=== PATIENT | female | born 1955 | race Caucasian/White ===

== ENCOUNTER 2021-01-09 19:47 | Inpatient (IN) | payer MEDICARE, MEDICAID, SELFPAY ==
[2021-01-09 20:21] VITALS: BP 187/85; PULSE 84; RESP 16; TEMP 36.8; O2SAT 96; BMI 45.8
[2021-01-09 21:47] VITALS: BP 189/90; PULSE 81; RESP 20; TEMP 36.7; O2SAT 97
--- NOTE | 2021-01-09 21:49 | PC.NURSE ---
patient a&ox3, calm/compliant, labs drawn, pt changed over to hospital attire, sitter at bedside, pt requesting something to eat, will continue to monitor.
[2021-01-09 21:50] LABS: MANUAL DIFF FLAG NO
[2021-01-09 21:51] LABS: Basophils Absolute Auto 0.1 X10*3/uL (0.0-0.2); Basophils Percent Auto 0.8 % (0-2); Eosinophils Absolute Auto 0.2 X10*3/uL (0.0-0.4); Eosinophils Percent Auto 2.6 % (0-4); Hematocrit 44.1 % (37-47); Hemoglobin 14.3 g/dl (12.0-16.0); Imm Gran Abs Auto 0.02 X10*3/uL (0.00-0.03); Imm Gran Pct Auto 0.2 % (0.0-0.4); Lymphocytes Absolute Auto 3.5 X10*3/uL (1.2-4.9); Mean Corpuscular HGB Conc 32.4 g/dl (31.0-35.0); Mean Corpuscular Hemoglobin 27.1 pg (27.0-33.0); Mean Corpuscular Volume 83.7 fL (80-98); Mean Platelet Volume 10.3 fL (9.4-12.3); Monocytes Absolute Auto 0.5 X10*3/uL (0.1-1.2); Monocytes Percent Auto 5.1 % (2-11); Neutrophils Absolute Auto 4.5 X10*3/uL (2.0-8.3); Neutrophils Percent Auto 51.3 % (45-73); Platelet Count 283 X10*3/uL (160-400); Red Blood Count 5.27 X10*6/uL (4.20-5.50); White Blood Count 8.8 X10*3/uL (4.8-10.8)
[2021-01-09 22:13] LABS: Ethanol < 10 mg/dL
[2021-01-09 22:15] LABS: Alanine Aminotransferase 26 U/L (0-31); Albumin Level 4.3 g/dL (3.5-5.0); Alkaline Phosphatase 100 U/L (39-117); Anion Gap 15 (12-20); Aspartate Amino Transferase 29 U/L (5-31); Bilirubin Direct 0.2 mg/dL (0.0-0.5); Bilirubin Total 0.6 mg/dL (0.0-1.0); Blood Urea Nitrogen 17 mg/dL (9-16); Calcium 9.5 mg/dL (8.4-10.2); Carbon Dioxide 27 mmol/L (22-29); Chloride 106 mmol/L (96-108); Creatinine Clr Calc Pharmacy 78.3; Estimated Glomerular Filt Rate > 60; Glucose Random 108 mg/dL (60-115); Potassium 3.9 mmol/L (3.3-5.1); Sodium 144 mmol/L (135-145); Total Protein 6.9 g/dL (6.5-8.0)
[2021-01-09 22:17] LABS: Prothrombin Time 12.3 SEC (10.8-13.0)
[2021-01-09 22:26] LABS: Amphetamine Screen Urine Not Detected (Not Detect); Barbiturates, Urine Not Detected (Not Detect); Benzodiazepines Screen Urine Not Detected (Not Detect); Cannabinoid Screen Urine Not Detected (Not Detect); Cocaine Screen Urine Not Detected (Not Detect); Opiate Screen Urine Not Detected (Not Detect); Phencyclidine Screen Urine Not Detected (Not Detect)
--- NOTE | 2021-01-09 23:57 | ED_ITS ---
HPI - Psych General Chief Complaint: Psychiatric Symptoms Stated Complaint: crisis Time Seen by Provider: 01/09/21 21:04 Source: patient Mode of arrival: ambulatory Limitations: no limitations History of Present Illness HPI Narrative: Patient brought to ED for suicidal ideation. Patient was sent to the ED by her psychiatrist because she made suicidal statements during virtual phone call. Patient states last suicide attempt was last week. Patient states she was about to swallow pills last week but then she stopped herself. Patient states having constant thoughts of suicidal ideation. Patient to be evaluated. Related Data Allergies Allergy/AdvReac Type Severity Reaction Status Date / Time aripiprazole [From Abilify] Allergy Depression Verified 01/09/21 20:20 aspirin Allergy Swelling Verified 01/09/21 20:20 codeine Allergy Anxiety Verified 01/09/21 20:20 duloxetine Allergy Anxiety Verified 01/09/21 20:20 risperidone Allergy Blister Verified 01/09/21 20:20 Review of Systems Review of Systems: Yes all other systems are reviewed and are negative Constitutional: Constitutional: Reports as per HPI and Reports no additional c onstitutional complaints Eyes: Eyes: Reports as per HPI and Reports no additional eye complaints ENT: Reports system reviewed and no additional complaints, except as documented and Reports as per HPI Cardiovascular: Cardiovascular: Reports as per HPI and Reports no additional cardiovascular complaints Respiratory: Respiratory: Reports as per HPI and Reports no additional respiratory complaints Gastrointestinal: Gastrointestinal: Reports as per HPI and Reports no additional gastrointestinal complaints Genitourinary: Genitourinary: Reports no additional female genitourinary complaints and Reports as per HPI Musculoskeletal: Musculoskeletal: Reports no additional musculoskeletal complaints and Reports as per HPI Neurologic: Reports system reviewed and no additional complaints, except as documented and Reports as per HPI Psychiatric: Psychiatric: Reports no additional psychiatric complaints, Reports as per HPI and Reports suicidal ideation REPLACED BY [facility] Social History Social History Alcohol intake: never Smoking Status: Never smoker Use of substances other than those prescribed or required for medical reasons: No Advance Directives: No Advance Directives Information Provided: Yes Physical Exam Vital Signs: Vital Signs: Last Vital Signs Temp 98.1 F 01/09/21 21:47 Pulse 81 01/09/21 21:47 Resp 20 01/09/21 21:47 BP 189/90 H 01/09/21 21:47 Pulse Ox 97 01/09/21 21:47 Body Mass Index 45.8 Const: General: cooperative, healthy appearing, comfortable, no acute distress, well developed, alert, awake and Physically active Or ientation/consciousness: patient oriented x3 HENMT: Head: Yes normal to inspection and Yes No palpable skull fracture present Eyes: General: appearance normal, both eyes and all related structures Neck: Neck: Yes normal visual inspection, Yes full ROM, Yes no lymphadenopathy, Yes no meningeal signs, Yes trachea midline, Yes supple and No tender Chest: Chest palpation & inspection: normal inspection of the chest and normal palpation of entire chest wall Resp: Effort & Inspection: normal respiratory effort and able to speak in complete sentences Auscultation: clear to auscultation bilaterally Cardio: Jugular venous distension: no JVD Heart sounds: S1 normal heart sound present and S2 normal heart sound present : General: No CVA tenderness and Yes no CVA tenderness Back/Spine/Pelvis: Back: no CVA tenderness, No CVA tenderness and No back tenderness Skin: General skin exam: no rashes or lesions noted and elasticity normal Neuro: General: patient oriented x3, no meningeal signs and CN's II-XI intact bilaterally Cranial nerves: Yes CN's II-XII intact bilaterally Extrem: General: Yes normal to inspection and Yes full ROM Psych: Appearance: grossly normal, well kempt and not disheveled Thought content: Suicidality present Course Course Course Narrative: Patient will have basic labs. Patient then will be evaluated N Reevaluation(s) Reevaluation #1: Patient awaiting N evaluation MDM - Psych MDM Narrative Medical decision making narrative: Depression Lab Data Result diagrams: 01/09/21 21:42 01/09/21 21:42 Labs: Lab Results 01/09/21 01/09/21 01/09/21 Range/Units 21:42 21:42 21:42 WBC 8.8 (4.8-10.8) X10*3/uL RBC 5.27 (4.20-5.50) X10*6/uL Hgb 14.3 (12.0-16.0) g/dl Hct 44.1 (37-47) % MCV 83.7 (80-98) fL MCH 27.1 (27.0-33.0) pg MCHC 32.4 (31.0-35.0) g/dl RDW 13.0 (11.0-16.0) % Plt Count 283 (160-400) X10*3/uL MPV 10.3 (9.4-12.3) fL Immature Gran % (Auto) 0.2 (0.0-0.4) % Neut % (Auto) 51.3 (45-73) % Lymph % (Auto) 40.0 (20-40) % [place] % (Auto) 5.1 (2-11) % Eos % (Auto) 2.6 (0-4) % Baso % (Auto) 0.8 (0-2) % Lymph # (Auto) 3.5 (1.2-4.9) X10*3/uL [place] # (Auto) 0.5 (0.1-1.2) X10*3/uL Eos # (Auto) 0.2 (0.0-0.4) X10*3/uL Baso # (Auto) 0.1 (0.0-0.2) X10*3/uL Abs Immat Gran (auto) 0.02 (0.00-0.03) X10*3/uL Absolute Neuts (auto) 4.5 (2.0-8.3) X10*3/uL Absolute Nucleated RBC 0.000 (0.0-0.012) X10*3/uL Nucleated RBC % (auto) 0.0 (0.0-0.2) /100WBC PT 12.3 (10.8-13.0) SEC INR 1.0 (0.9-1.1) APTT 37.0 (24.1-38.0) SEC Sodium 144 (135-145) mmol/L Potassium 3.9 (3.3-5.1) mmol/L Chloride 106 (96-108) mmol/L Carbon Dioxide 27 (22-29) mmol/L Anion Gap 15 (12-20) BUN 17 H (9-16) mg/dL Creatinine 0.78 (0.5-1.4) mg/dL Estim Creat Clear Calc 78.3 Estimated GFR > 60 Random Glucose 108 (60-115) mg/dL Calcium 9.5 (8.4-10.2) mg/dL Total Bilirubin 0.6 (0.0-1.0) mg/dL Direct Bilirubin 0.2 (0.0-0.5) mg/dL AST 29 (5-31) U/L ALT 26 (0-31) U/L Alkaline Phosphatase 100 (39-117) U/L Total Protein 6.9 (6.5-8.0) g/dL Albumin 4.3 (3.5-5.0) g/dL Urine Opiates Screen (Not Detect) Ur Barbiturates Screen (Not Detect) Ur Phencyclidine Scrn (Not Detect) Ur Amphetamines Screen (Not Detect) U Benzodiazepines Scrn (Not Detect) Urine Cocaine Screen (Not Detect) U Marijuana (THC) Screen (Not Detect) Ethyl Alcohol mg/dL 01/09/21 01/09/21 Range/Units 21:42 21:42 WBC (4.8-10.8) X10*3/uL RBC (4.20-5.50) X10*6/uL Hgb (12.0-16.0) g/dl Hct (37-47) % MCV (80-98) fL MCH (27.0-33.0) pg MCHC (31.0-35.0) g/dl RDW (11.0-16.0) % Plt Count (160-400) X10*3/uL MPV (9.4-12.3) fL Immature Gran % (Auto) (0.0-0.4) % Neut % (Auto) (45-73) % Lymph % (Auto) (20-40) % [place] % (Auto) (2-11) % Eos % (Auto) (0-4) % Baso % (Auto) (0-2) % Lymph # (Auto) (1.2-4.9) X10*3/uL [place] # (Auto) (0.1-1.2) X10*3/uL Eos # (Auto) (0.0-0.4) X10*3/uL Baso # (Auto) (0.0-0.2) X10*3/uL Abs Immat Gran (auto) (0.00-0.03) X10*3/uL Absolute Neuts (auto) (2.0-8.3) X10*3/uL Absolute Nucleated RBC (0.0-0.012) X10*3/uL Nucleated RBC % (auto) (0.0-0.2) /100WBC PT (10.8-13.0) SEC INR (0.9-1.1) APTT (24.1-38.0) SEC Sodium (135-145) mmol/L Potassium (3.3-5.1) mmol/L Chloride (96-108) mmol/L Carbon Dioxide (22-29) mmol/L Anion Gap (12-20) BUN (9-16) mg/dL Creatinine (0.5-1.4) mg/dL Estim Creat Clear Calc Estimated GFR Random Glucose (60-115) mg/dL Calcium (8.4-10.2) mg/dL Total Bilirubin (0.0-1.0) mg/dL Direct Bilirubin (0.0-0.5) mg/dL AST (5-31) U/L ALT (0-31) U/L Alkaline Phosphatase (39-117) U/L Total Protein (6.5-8.0) g/dL Albumin (3.5-5.0) g/dL Urine Opiates Screen Not Detected (Not Detect) Ur Barbiturates Screen Not Detected (Not Detect) Ur Phencyclidine Scrn Not Detected (Not Detect) Ur Amphetamines Screen Not Detected (Not Detect) U Benzodiazepines Scrn Not Detected (Not Detect) Urine Cocaine Screen Not Detected (Not Detect) U Marijuana (THC) Screen Not Detected (Not Detect) Ethyl Alcohol < 10 mg/dL Discharge Plan Discharge Clinical Impression: Depression
--- NOTE | 2021-01-10 | ECG_ITS ---
Test Reason : PRE ADMISSION Blood Pressure : / mmHG Vent. Rate : 075 BPM Atrial Rate : 075 BPM P-R Int : 170 ms QRS Dur : 098 ms QT Int : 404 ms P-R-T Axes : 044 -23 026 degrees QTc Int : 451 ms Normal sinus rhythm Normal ECG No previous ECGs available Referred By: Pola Caraballo Electronically Signed By:CAN SOOD MD
[2021-01-10] MEDS: Acetaminophen 325 MG TABLET 650 MG PO (02:47)
[2021-01-10] MEDS: clonazePAM 0.5 MG TABLET PO ×4 (02:47→23:49)
[2021-01-10 09:17] VITALS: BP 168/88; PULSE 80; RESP 18
[2021-01-10 09:46] LABS: COVID-19 Test Negative (Negative); IDNOW Serial# 9DD0AD1C
--- NOTE | 2021-01-10 10:42 | PC.NURSE ---
patient expressed she was beginning to feel anxious about having to wait to be seen by [facility]. call to care team, Carlota aware and will see patient.
[2021-01-10] MEDS: Acetaminophen 325 MG TABLET 975 MG PO ×2 (14:16→23:52)
--- NOTE | 2021-01-10 14:52 | PC.NURSE ---
pt reports she is a bed search, c/o gupta, apap given, pleasant, sitter at bedside, pharmacy contacted for med rec
--- NOTE | 2021-01-10 15:11 | PC.NURSE ---
Pt transferred over from main ED without issue. Calm and cooperative. Awaiting pending transfer to
--- NOTE | 2021-01-10 17:00 | PC.NURSE ---
Playing TRISHA in the common area at current. Calm and cooperative. No complaints at this time.
[2021-01-10] MEDS: Atorvastatin Calcium 20 MG TABLET PO (20:09)
[2021-01-10] MEDS: lamoTRIgine 25 MG TABLET 150 MG PO (20:10)
[2021-01-10] MEDS: Venlafaxine HCl ER 75 MG CAP.ER.24H PO (20:12)
[2021-01-10] MEDS: Venlafaxine HCl ER 75 MG CAP.ER.24H 150 MG PO (20:16)
[2021-01-11] MEDS: Omeprazole 20 MG CAPSULE.DR PO (05:39)
[2021-01-11] MEDS: Levothyroxine Sodium 88 MCG TABLET PO (05:39)
[2021-01-11 05:40] VITALS: BP 138/72; PULSE 90; RESP 16; TEMP 36.3; O2SAT 96
[2021-01-11] MEDS: clonazePAM 0.5 MG TABLET PO ×3 (09:33→21:51)
[2021-01-11] MEDS: Venlafaxine HCl ER 75 MG CAP.ER.24H 150 MG PO (09:33)
[2021-01-11] MEDS: lamoTRIgine 100 MG TABLET PO ×2 (09:34→21:49)
[2021-01-11] MEDS: lamoTRIgine 25 MG TABLET 50 MG PO ×2 (09:34→21:48)
--- NOTE | 2021-01-11 16:37 | P.HPPS_ITS ---
HPI Chief Complaint: Depression with sucidal ideation Sources of Information: patient interviewed, chart reviewed and crisis/core team assessment reviewed HPI Subjective Notes: Conditional Voluntary Narrative: Ms. Mayorga is a 65 year-old woman with hx of PTSD, BPD, DID, who was self presented to [facility] after she had session with OP psychotherapist and reported suicidal ideation with plan to OD. In the ED her utox was negative. On the unit, Ms. Mayorga reports that for past several months she has been feeling increasingly more depressed. She is able to identify several triggers including fact that she is not able to gather with people from [employer] as she used to due to COVID, her therapist of last year left and she has new therapist and apparently she felt rejected by her daughter in law. Ms. Mayorga has some insight into her chronic fear of abandonment and feelings of emptiness. She has been in psychotherapy for more than 20 years, 15 of them with same therapist who retired 2 years ago. Ms. Mayorga also reports that she has multiple identities which her termite control technician psychotherapist use to work with her on forming a more cohesive integration of these multiple identities. Pt reports that current therapist not comfortable about let her bring these identities in the session. Pt reports she was sleeping and eating well. She denies VH/AH. Most of her themes are related to personality traits, which pt appears to have done significant work over the years. Pt continues to report passive suicidal ideation but denies any plan or intent. Past Psychiatric History: Inpatient: multiple inpt admissions, but last one was 2 years ago at [facility] OP: [facility] Suicide attempt: pt reports 2; one in 88' OD, second in 90's cut wrist. Self injurious behaviors: pt reports hx of SIB to relief emotional pain but she stopped 10 years ago and is clear that this is not an option now when she feels emotionally distressed. Medication trials: multiple, including risperidone, abilify, cymbalta, best combinatino of medications is the one she has now including lamictal. Medical Evaluation Reviewed: Yes HTN- apparently new, not on medications at home. [facility] Family History: unknown Social History: lives alone. Has two adult children ages 40 and 42. . Substance History: none Trauma History: extensive childhood trauma, details not disclosed. Diagnostics Vital Signs (24Hr): Vital Signs - 24 hr 01/11/21 05:40 Temperature 97.4 F Pulse Rate 90 Respiratory Rate 16 Blood Pressure 138/72 Pulse Oximetry 96 Body Mass Index 45.8 Labs Results: 01/09/21 21:42 01/09/21 21:42 Labs: Laboratory Results - last 48 hr 01/09/21 01/09/21 01/09/21 21:42 21:42 21:42 WBC 8.8 RBC 5.27 Hgb 14.3 Hct 44.1 MCV 83.7 MCH 27.1 MCHC 32.4 RDW 13.0 Plt Count 283 MPV 10.3 Immature Gran % (Auto) 0.2 Neut % (Auto) 51.3 Lymph % (Auto) 40.0 [place] % (Auto) 5.1 Eos % (Auto) 2.6 Baso % (Auto) 0.8 Lymph # (Auto) 3.5 [place] # (Auto) 0.5 Eos # (Auto) 0.2 Baso # (Auto) 0.1 Abs Immat Gran (auto) 0.02 Absolute Neuts (auto) 4.5 Absolute Nucleated RBC 0.000 Nucleated RBC % (auto) 0.0 PT 12.3 INR 1.0 APTT 37.0 Sodium 144 Potassium 3.9 Chloride 106 Carbon Dioxide 27 Anion Gap 15 BUN 17 H Creatinine 0.78 Estim Creat Clear Calc 78.3 Estimated GFR > 60 Random Glucose 108 Calcium 9.5 Total Bilirubin 0.6 Direct Bilirubin 0.2 AST 29 ALT 26 Alkaline Phosphatase 100 Total Protein 6.9 Albumin 4.3 Urine Opiates Screen Ur Barbiturates Screen Ur Phencyclidine Scrn Ur Amphetamines Screen U Benzodiazepines Scrn Urine Cocaine Screen U Marijuana (THC) Screen Ethyl Alcohol COVID-19 (ART) COVID-19 Clin Com 01/09/21 01/09/21 01/10/21 21:42 21:42 09:21 WBC RBC Hgb Hct MCV MCH MCHC RDW Plt Count MPV Immature Gran % (Auto) Neut % (Auto) Lymph % (Auto) [place] % (Auto) Eos % (Auto) Baso % (Auto) Lymph # (Auto) [place] # (Auto) Eos # (Auto) Baso # (Auto) Abs Immat Gran (auto) Absolute Neuts (auto) Absolute Nucleated RBC Nucleated RBC % (auto) PT INR APTT Sodium Potassium Chloride Carbon Dioxide Anion Gap BUN Creatinine Estim Creat Clear Calc Estimated GFR Random Glucose Calcium Total Bilirubin Direct Bilirubin AST ALT Alkaline Phosphatase Total Protein Albumin Urine Opiates Screen Not Detected Ur Barbiturates Screen Not Detected Ur Phencyclidine Scrn Not Detected Ur Amphetamines Screen Not Detected U Benzodiazepines Scrn Not Detected Urine Cocaine Screen Not Detected U Marijuana (THC) Screen Not Detected Ethyl Alcohol < 10 COVID-19 (ART) Negative COVID-19 Clin Com See Note Meds/Allergies Meds Home Medications Acetaminophen (Acetaminophen 325 Mg Tablet) 975 mg PO Q6H PRN PRN Reason: pain Last Admin: 01/11/21 17:42 Dose: 975 mg Documented by: Al Hydroxide/Mg Hydroxide (Magnesium Hydrox/Alum Hydrox 30 Ml Oral.Susp) 30 ml PO Q6H PRN PRN Reason: Heartburn/Nausea Atorvastatin Calcium (Atorvastatin Calcium 20 Mg Tablet) 20 mg PO BEDTIME [facility] Last Admin: 01/11/21 21:51 Dose: 20 mg Documented by: Clonazepam (Clonazepam 0.5 Mg Tablet) 0.5 mg PO Q6H PRN PRN Reason: anxiety Last Admin: 01/12/21 03:42 Dose: 0.5 mg Documented by: Clonazepam (Clonazepam 0.5 Mg Tablet) 0.5 mg PO BID [facility] Last Admin: 01/12/21 09:21 Dose: 0.5 mg Documented by: Hydroxyzine HCl (Hydroxyzine Hcl 25 Mg Tablet) 25 mg PO BEDTIME PRN PRN Reason: Anxiety Indomethacin (Indomethacin 25 Mg Capsule) 25 mg PO DAILY PRN PRN Reason: Pain, Moderate (Pain Scale 4-6 Lamotrigine (Lamotrigine 100 Mg Tablet) 100 mg PO BID [facility] Last Admin: 01/12/21 09:21 Dose: 100 mg Documented by: Lamotrigine (Lamotrigine 25 Mg Tablet) 50 mg PO BID [facility] Last Admin: 01/12/21 09:21 Dose: 50 mg Documented by: Levothyroxine Sodium (Levothyroxine Sodium 88 Mcg Tablet) 88 mcg PO DAILY@0630 [facility] Last Admin: 01/12/21 06:44 Dose: 88 mcg Documented by: Lidocaine (Lidocaine 4 % Patch Adh..Patch) 1 patch TRANSDERMA DAILY PRN; Protocol PRN Reason: Pain, Moderate (Pain Scale 4-6 Magnesium Hydroxide (Milk Of Magnesia 30 Ml Oral.Susp) 30 ml PO DAILY PRN PRN Reason: Constipation Patient Own Medication ([place] Mucil Capsules) 1 each PO DAILY [facility] Omeprazole (Omeprazole 20 Mg Capsule.Dr) 20 mg PO DAILY@0630 [facility] Last Admin: 01/12/21 06:44 Dose: 20 mg Documented by: Trazodone HCl (Trazodone Hcl 50 Mg Tablet) 50 mg PO BEDTIME PRN PRN Reason: Insomnia Venlafaxine HCl (Venlafaxine Hcl Er 75 Mg Cap.Er.24h) 75 mg PO BEDTIME [facility] Last Admin: 01/12/21 09:21 Dose: 75 mg Documented by: Venlafaxine HCl (Venlafaxine Hcl Er 75 Mg Cap.Er.24h) 150 mg PO DAILY [facility] Last Admin: 01/12/21 09:21 Dose: 150 mg Documented by: Allergies Allergies Allergy/AdvReac Type Severity Reaction Status Date / Time aripiprazole [From [facility]] Allergy Depression Verified 01/09/21 20:20 aspirin Allergy Swelling Verified 01/09/21 20:20 codeine Allergy Anxiety Verified 01/09/21 20:20 duloxetine Allergy Anxiety Verified 01/09/21 20:20 risperidone Allergy Blister Verified 01/09/21 20:20 Mental Status Exam Mental Status Exam Narrative: Appearance: MO, casually groomed, good hygiene, in NAD Behavior: calm, cooperative Psychomotor: no agitation or retardation noted Speech: clear, normal rate/rhythm/volume, spontaneous TP: linear TC: no signs of psychosis, feeling lonely Mood: depressed Affect:much brighter than reported mood SI:passive HI:denies AH/VH:none Delusions:none Insight/judgment:fair x 2. Memory/cog: alert, oriented x 3. grossly intact to conversational testing. Assessment & Plan Assessment & Plan (1) MDD (major depressive disorder), recurrent episode, moderate: Status: Acute Code(s): F33.1 - Major depressive disorder, recurrent, moderate Assessment and Plan: continue current medications. Pt would like to step down to [facility] once more stable. She currently does weekly DBT classes. (2) Borderline personality disorder: Status: Acute Code(s): F60.3 - Borderline personality disorder Assessment and Plan: continue current medications Reason for continued inpatient stay Substantial Risk for: harm to self
[2021-01-11 17:05] VITALS: BP 145/63; PULSE 90; TEMP 37.2
[2021-01-11] MEDS: Acetaminophen 325 MG TABLET 975 MG PO (17:42)
[2021-01-11] MEDS: Venlafaxine HCl ER 75 MG CAP.ER.24H PO (21:51)
[2021-01-11] MEDS: Atorvastatin Calcium 20 MG TABLET PO (21:51)
[2021-01-12] MEDS: clonazePAM 0.5 MG TABLET PO ×3 (03:42→20:32)
[2021-01-12 03:50] VITALS: BP 117/75; PULSE 90; RESP 18; TEMP 36.6; O2SAT 97
[2021-01-12] MEDS: Levothyroxine Sodium 88 MCG TABLET PO (06:44)
[2021-01-12] MEDS: Omeprazole 20 MG CAPSULE.DR PO (06:44)
[2021-01-12 09:08] LABS: Estimated Average Glucose 166 mg/dL; Hemoglobin A1c % 7.4 %
[2021-01-12 09:12] LABS: Cholesterol 199 mg/dL; HDL Cholesterol 54 mg/dL; LDL Cholesterol Calculated 111 mg/dl; Triglycerides 173 mg/dL
[2021-01-12] MEDS: lamoTRIgine 25 MG TABLET 50 MG PO ×2 (09:21→20:33)
[2021-01-12] MEDS: lamoTRIgine 100 MG TABLET PO ×2 (09:21→20:32)
[2021-01-12] MEDS: Venlafaxine HCl ER 75 MG CAP.ER.24H 150 MG PO (09:21)
[2021-01-12] MEDS: Venlafaxine HCl ER 75 MG CAP.ER.24H PO ×2 (09:21→20:32)
[2021-01-12 09:45] LABS: Folate 8.3 ng/mL (> or = 4.0); Vitamin B12 257 pg/mL (200-900)
[2021-01-12] MEDS: Lidocaine 4 % Patch ADH..PATCH 1 PATCH TRANSDERMA (13:43)
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
[2021-01-12 18:00] VITALS: BP 126/78; PULSE 99; TEMP 36.9
[2021-01-12] MEDS: Atorvastatin Calcium 20 MG TABLET PO (20:34)
[2021-01-12] MEDS: Acetaminophen 325 MG TABLET 975 MG PO (20:38)
[2021-01-13] MEDS: Acetaminophen 325 MG TABLET 975 MG PO ×2 (04:25→20:46)
[2021-01-13 06:00] VITALS: BP 116/66; PULSE 77; RESP 16; TEMP 36.8; O2SAT 97
[2021-01-13] MEDS: Omeprazole 20 MG CAPSULE.DR PO (06:20)
[2021-01-13] MEDS: Levothyroxine Sodium 88 MCG TABLET PO (06:20)
[2021-01-13] MEDS: lamoTRIgine 25 MG TABLET 50 MG PO ×2 (08:48→20:48)
[2021-01-13] MEDS: Venlafaxine HCl ER 75 MG CAP.ER.24H 150 MG PO (08:48)
[2021-01-13] MEDS: clonazePAM 0.5 MG TABLET PO ×2 (08:48→20:47)
[2021-01-13] MEDS: lamoTRIgine 100 MG TABLET PO ×2 (08:48→20:47)
--- NOTE | 2021-01-13 10:40 | HO.PSYCHPN ---
Subjective Subjective Date of Service: 01/13/21 Reason For Visit: Depression with sucidal ideation Interim History: Lidia presenting with bright affect with peers. Continues with nightmares and visual hallucinations. she reports suicidal ideation although denies any plan or intent. Pt reports eating well. Review of Systems Review of Systems Yes all other systems are reviewed and are negative Constitutional: Reports as per HPI and Reports no additional constitutional complaints Eyes: Reports as per HPI and Reports no additional eye complaints Reports system reviewed and no additional complaints, except as documented and Reports as per HPI Cardiovascular: Reports as per HPI and Reports no additional cardiovascular complaints Respiratory: Reports as per HPI and Reports no additional respiratory complaints Gastrointestinal: Reports as per HPI and Reports no additional gastrointestinal complaints Musculoskeletal: Reports no additional musculoskeletal complaints and Reports as per HPI Reports system reviewed and no additional complaints, except as documented and Reports as per HPI Psychiatric: Reports no additional psychiatric complaints, Reports as per HPI and Reports suicidal ideation Mental Status Exam Mental Status Exam Narrative: Appearance: MO, casually groomed, good hygiene, in NAD Behavior: calm, cooperative Psychomotor: no agitation or retardation noted Speech: clear, normal rate/rhythm/volume, spontaneous TP: linear TC: no signs of psychosis, feeling lonely Mood: depressed Affect:much brighter than reported mood SI:passive HI:denies AH/VH:none Delusions:none Insight/judgment:fair x 2. Memory/cog: alert, oriented x 3. grossly intact to conversational testing. Diagnostics Vital Signs (24Hr): Vital Signs - 24 hr 01/12/21 18:00 01/13/21 06:00 Temperature 98.5 F 98.2 F Pulse Rate 99 77 Respiratory Rate 16 Blood Pressure 126/78 116/66 Pulse Oximetry 97 Body Mass Index 45.8 Labs Results: 01/09/21 21:42 01/09/21 21:42 Labs: Laboratory Results - last 48 hr 01/12/21 01/12/21 01/12/21 08:03 08:03 08:03 Estimat Average Glucose 166 Hemoglobin A1c % 7.4 Triglycerides 173 Cholesterol 199 LDL Cholesterol, Calc 111 HDL Cholesterol 54 Vitamin B12 257 Folate 8.3 Medications Medications Current Medications Generic Name Dose Route Start Last Admin Trade Name Freq PRN Reason Stop Dose Admin Acetaminophen 975 mg 01/10/21 13:59 01/13/21 04:25 Acetaminophen 325 Mg Tablet PO 975 mg Q6H PRN Administration pain Al Hydroxide/Mg Hydroxide 30 ml 01/10/21 23:46 Magnesium Hydrox/Alum Hydrox 30 Ml Oral.Susp PO Q6H PRN Heartburn/Nausea Atorvastatin Calcium 20 mg 01/10/21 21:00 01/12/21 20:34 Atorvastatin Calcium 20 Mg Tablet PO 20 mg BEDTIME JACQUIE Administration Clonazepam 0.5 mg 01/10/21 15:30 01/12/21 03:42 Clonazepam 0.5 Mg Tablet PO 0.5 mg Q6H PRN Administration anxiety Clonazepam 0.5 mg 01/10/21 21:00 01/13/21 08:48 Clonazepam 0.5 Mg Tablet PO 0.5 mg BID JACQUIE Administration Hydroxyzine HCl 25 mg 01/10/21 23:46 Hydroxyzine Hcl 25 Mg Tablet PO BEDTIME PRN Anxiety Indomethacin 25 mg 01/11/21 16:39 Indomethacin 25 Mg Capsule PO DAILY PRN Pain, Moderate (Pain Scale 4-6 Lamotrigine 100 mg 01/11/21 09:30 01/13/21 08:48 Lamotrigine 100 Mg Tablet PO 100 mg BID JACQUIE Administration Lamotrigine 50 mg 01/11/21 09:30 01/13/21 08:48 Lamotrigine 25 Mg Tablet PO 50 mg BID JACQUIE Administration Levothyroxine Sodium 88 mcg 01/11/21 06:30 01/13/21 06:20 Levothyroxine Sodium 88 Mcg Tablet PO 88 mcg DAILY@0630 JACQUIE Administration Lidocaine 1 patch 01/11/21 21:45 01/12/21 13:43 Lidocaine 4 % Patch Adh..Patch TRANSDERMA 1 patch DAILY PRN Administration Pain, Moderate (Pain Scale 4-6 Protocol Magnesium Hydroxide 30 ml 01/10/21 23:46 Milk Of Magnesia 30 Ml Oral.Susp PO DAILY PRN Constipation Patient Own 1 each 01/12/21 09:30 01/13/21 08:49 Medication ([place] PO 1 each Mucil Capsules) DAILY JACQUIE Administration Omeprazole 20 mg 01/11/21 06:30 01/13/21 06:20 Omeprazole 20 Mg Capsule.Dr PO 20 mg DAILY@0630 JACQUIE Administration Trazodone HCl 50 mg 01/10/21 23:46 Trazodone Hcl 50 Mg Tablet PO BEDTIME PRN Insomnia Venlafaxine HCl 75 mg 01/10/21 21:00 01/12/21 20:32 Venlafaxine Hcl Er 75 Mg Cap.Er.24h PO 75 mg BEDTIME JACQUIE Administration Venlafaxine HCl 150 mg 01/10/21 20:00 01/13/21 08:48 Venlafaxine Hcl Er 75 Mg Cap.Er.24h PO 150 mg DAILY JACQUIE Administration Allergies Allergies Allergy/AdvReac Type Severity Reaction Status Date / Time aripiprazole [From [facility] Allergy Depression Verified 01/09/21 20:20 aspirin Allergy Swelling Verified 01/09/21 20:20 codeine Allergy Anxiety Verified 01/09/21 20:20 duloxetine Allergy Anxiety Verified 01/09/21 20:20 risperidone Allergy Blister Verified 01/09/21 20:20 Assessment & Plan Assessment & Plan (1) MDD (major depressive disorder), recurrent episode, moderate: Status: Acute Code(s): F33.1 - Major depressive disorder, recurrent, moderate (2) Borderline personality disorder: Status: Acute Code(s): F60.3 - Borderline personality disorder Assessment and Plan: continue current medications. Pt would like to step down to PHP once more stable. She currently does weekly DBT classes. continue current medications Greater than 50% of the session was spent on counseling and/or coordination of care Reason for contiued inpatient stay Substantial Risk for: harm to self, inability to function, rapid decompensation and med/psych decompensation
[2021-01-13 18:00] VITALS: BP 167/82; PULSE 88; RESP 18; TEMP 36.4
[2021-01-13] MEDS: Venlafaxine HCl ER 75 MG CAP.ER.24H PO (20:47)
[2021-01-13] MEDS: Atorvastatin Calcium 20 MG TABLET PO (20:47)
[2021-01-14] MEDS: Omeprazole 20 MG CAPSULE.DR PO (04:32)
[2021-01-14] MEDS: clonazePAM 0.5 MG TABLET PO ×4 (04:32→21:17)
[2021-01-14] MEDS: Levothyroxine Sodium 88 MCG TABLET PO (04:32)
[2021-01-14 06:00] VITALS: BP 167/59; PULSE 71; TEMP 36.2; O2SAT 95
[2021-01-14] MEDS: Venlafaxine HCl ER 75 MG CAP.ER.24H 150 MG PO (08:35)
[2021-01-14] MEDS: lamoTRIgine 100 MG TABLET PO ×2 (08:35→21:18)
[2021-01-14] MEDS: lamoTRIgine 25 MG TABLET 50 MG PO ×2 (08:35→21:15)
--- NOTE | 2021-01-14 17:09 | P.PNPSI_ITS ---
Subjective Subjective Date of Service: 01/14/21 Reason For Visit: Depression with sucidal ideation Interim History: Lidia presenting with bright affect with peers. Continues with nightmares and visual hallucinations. she reports suicidal ideation when she is not distracted or engaged in an activity; feels sad that the SI thoughts come back. denies any plan or intent. Pt reports eating well. Review of Systems Review of Systems Yes all other systems are reviewed and are negative Constitutional: Reports as per HPI and Reports no additional constitutional complaints Eyes: Reports as per HPI and Reports no additional eye complaints Reports system reviewed and no additional complaints, except as documented and Reports as per HPI Cardiovascular: Reports as per HPI and Reports no additional cardiovascular complaints Respiratory: Reports as per HPI and Reports no additional respiratory complaints Gastrointestinal: Reports as per HPI and Reports no additional gastrointestinal complaints Musculoskeletal: Reports no additional musculoskeletal complaints and Reports as per HPI Reports system reviewed and no additional complaints, except as documented and Reports as per HPI Psychiatric: Reports no additional psychiatric complaints, Reports as per HPI and Reports suicidal ideation Mental Status Exam Mental Status Exam Narrative: Appearance: MO, casually groomed, good hygiene, in NAD Behavior: calm, cooperative Psychomotor: no agitation or retardation noted Speech: clear, normal rate/rhythm/volume, spontaneous TP: linear TC: no signs of psychosis, feeling lonely Mood: depressed Affect:much brighter than reported mood SI:passive HI:denies AH/VH:none Delusions:none Insight/judgment:fair x 2. Memory/cog: alert, oriented x 3. grossly intact to conversational testing. Thought Content: positive for Intact and positive for Suicidal Ideation (passive, intrusive, ego dystonic ) Judgement: Good Diagnostics Vital Signs (24Hr): Vital Signs - 24 hr 01/13/21 18:00 01/14/21 06:00 Temperature 97.6 F 97.2 F Pulse Rate 88 71 Respiratory Rate 18 Blood Pressure 167/82 H 167/59 H Pulse Oximetry 95 Body Mass Index 45.8 Labs Results: 01/09/21 21:42 01/09/21 21:42 Medications Medications Current Medications Generic Name Dose Route Start Last Admin Trade Name Freq PRN Reason Stop Dose Admin Acetaminophen 975 mg 01/10/21 13:59 01/13/21 20:46 Acetaminophen 325 Mg Tablet PO 975 mg Q6H PRN Administration pain Al Hydroxide/Mg Hydroxide 30 ml 01/10/21 23:46 Magnesium Hydrox/Alum Hydrox 30 Ml Oral.Susp PO Q6H PRN Heartburn/Nausea Atorvastatin Calcium 20 mg 01/10/21 21:00 01/13/21 20:47 Atorvastatin Calcium 20 Mg Tablet PO 20 mg BEDTIME JACQUIE Administration Clonazepam 0.5 mg 01/10/21 15:30 01/14/21 13:45 Clonazepam 0.5 Mg Tablet PO 0.5 mg Q6H PRN Administration anxiety Clonazepam 0.5 mg 01/10/21 21:00 01/14/21 08:35 Clonazepam 0.5 Mg Tablet PO 0.5 mg BID JACQUIE Administration Hydroxyzine HCl 25 mg 01/10/21 23:46 Hydroxyzine Hcl 25 Mg Tablet PO BEDTIME PRN Anxiety Indomethacin 25 mg 01/11/21 16:39 Indomethacin 25 Mg Capsule PO DAILY PRN Pain, Moderate (Pain Scale 4-6 Lamotrigine 100 mg 01/11/21 09:30 01/14/21 08:35 Lamotrigine 100 Mg Tablet PO 100 mg BID JACQUIE Administration Lamotrigine 50 mg 01/11/21 09:30 01/14/21 08:35 Lamotrigine 25 Mg Tablet PO 50 mg BID JACQUIE Administration Levothyroxine Sodium 88 mcg 01/11/21 06:30 01/14/21 04:32 Levothyroxine Sodium 88 Mcg Tablet PO 88 mcg DAILY@0630 JACQUIE Administration Lidocaine 1 patch 01/11/21 21:45 01/12/21 13:43 Lidocaine 4 % Patch Adh..Patch TRANSDERMA 1 patch DAILY PRN Administration Pain, Moderate (Pain Scale 4-6 Protocol Magnesium Hydroxide 30 ml 01/10/21 23:46 Milk Of Magnesia 30 Ml Oral.Susp PO DAILY PRN Constipation Patient Own 1 each 01/12/21 09:30 01/14/21 08:35 Medication ([place] PO 1 each Mucil Capsules) DAILY JACQUIE Administration Omeprazole 20 mg 01/11/21 06:30 01/14/21 04:32 Omeprazole 20 Mg Capsule.Dr PO 20 mg DAILY@0630 JACQUIE Administration Trazodone HCl 50 mg 01/10/21 23:46 Trazodone Hcl 50 Mg Tablet PO BEDTIME PRN Insomnia Venlafaxine HCl 75 mg 01/10/21 21:00 01/13/21 20:47 Venlafaxine Hcl Er 75 Mg Cap.Er.24h PO 75 mg BEDTIME JACQUIE Administration Venlafaxine HCl 150 mg 01/10/21 20:00 01/14/21 08:35 Venlafaxine Hcl Er 75 Mg Cap.Er.24h PO 150 mg DAILY JACQUIE Administration Allergies Allergies Allergy/AdvReac Type Severity Reaction Status Date / Time aripiprazole [From [facility]] Allergy Depression Verified 01/09/21 20:20 aspirin Allergy Swelling Verified 01/09/21 20:20 codeine Allergy Anxiety Verified 01/09/21 20:20 duloxetine Allergy Anxiety Verified 01/09/21 20:20 risperidone Allergy Blister Verified 01/09/21 20:20 Assessment & Plan Assessment & Plan (1) MDD (major depressive disorder), recurrent episode, moderate: Status: Acute Code(s): F33.1 - Major depressive disorder, recurrent, moderate (2) Borderline personality disorder: Status: Acute Code(s): F60.3 - Borderline personality disorder Assessment and Plan: continue current medications. consider prasozin for nightmares Pt would like to step down to PHP once more stable. She currently does weekly DBT classes. continue current medications Greater than 50% of the session was spent on counseling and/or coordination of care Reason for contiued inpatient stay Substantial Risk for: harm to self, inability to function and med/psych decompensation
[2021-01-14] MEDS: Acetaminophen 325 MG TABLET 975 MG PO (21:16)
[2021-01-14] MEDS: Venlafaxine HCl ER 75 MG CAP.ER.24H PO (21:17)
[2021-01-14] MEDS: Atorvastatin Calcium 20 MG TABLET PO (21:17)
[2021-01-14] MEDS: traZODone HCL 50 MG TABLET PO (21:18)
[2021-01-14 21:39] VITALS: BP 146/91; PULSE 85; TEMP 36.7
[2021-01-15] MEDS: clonazePAM 0.5 MG TABLET PO ×3 (02:07→20:53)
[2021-01-15 06:35] VITALS: BP 117/75; PULSE 66; RESP 18; TEMP 36.2; O2SAT 98
[2021-01-15] MEDS: Levothyroxine Sodium 88 MCG TABLET PO (07:10)
[2021-01-15] MEDS: Omeprazole 20 MG CAPSULE.DR PO (07:10)
[2021-01-15] MEDS: lamoTRIgine 100 MG TABLET PO ×2 (08:32→20:53)
[2021-01-15] MEDS: lamoTRIgine 25 MG TABLET 50 MG PO ×2 (08:32→20:53)
[2021-01-15] MEDS: Venlafaxine HCl ER 75 MG CAP.ER.24H 150 MG PO (08:32)
--- NOTE | 2021-01-15 13:03 | P.PNPSI_ITS ---
Subjective Subjective Date of Service: 01/15/21 Reason For Visit: Depression with sucidal ideation Interim History: Lidia reports that she had difficult weekend. She reports that it's hard when other pts are leaving and she just got used to them. She reports having nightmares, which she has not had in a while. She reports decrease symptoms of depression in that she is engage in groups, which she enjoys. She reports anxious mood. She continues to report passive suicidal thoughts but de nies any plan or intent. Review of Systems Review of Systems Yes all other systems are reviewed and are negative Constitutional: Reports as per HPI and Reports no additional constitutional complaints Eyes: Reports as per HPI and Reports no additional eye complaints Reports system reviewed and no additional complaints, except as documented and Reports as per HPI Cardiovascular: Reports as per HPI and Reports no additional cardiovascular complaints Respiratory: Reports as per HPI and Reports no additional respiratory complaints Gastrointestinal: Reports as per HPI and Reports no additional gastrointestinal complaints Musculoskeletal: Reports no additional musculoskeletal complaints and Reports as per HPI Reports system reviewed and no additional complaints, except as documented and Reports as per HPI Psychiatric: Reports no additional psychiatric complaints, Reports as per HPI and Reports suicidal ideation Mental Status Exam Mental Status Exam Narrative: Appearance: MO, casually groomed, good hygiene, in NAD Behavior: calm, cooperative Psychomotor: no agitation or retardation noted Speech: clear, normal rate/rhythm/volume, spontaneous TP: linear TC: no signs of psychosis, feeling lonely Mood: depressed Affect:much brighter than reported mood SI:passive HI:denies AH/VH:none Delusions:none Insight/judgment:fair x 2. Memory/cog: alert, oriented x 3. grossly intact to conversational testing. Diagnostics Vital Signs (24Hr): Vital Signs - 24 hr 01/14/21 21:39 01/15/21 06:35 Temperature 98.1 F 97.1 F Pulse Rate 85 66 Respiratory Rate 18 Blood Pressure 146/91 H 117/75 Pulse Oximetry 98 Body Mass Index 45.8 Labs Results: 01/09/21 21:42 01/09/21 21:42 Medications Medications Current Medications Generic Name Dose Route Start Last Admin Trade Name Freq PRN Reason Stop Dose Admin Acetaminophen 975 mg 01/10/21 13:59 01/14/21 21:16 Acetaminophen 325 Mg Tablet PO 975 mg Q6H PRN Administration pain Al Hydroxide/Mg Hydroxide 30 ml 01/10/21 23:46 Magnesium Hydrox/Alum Hydrox 30 Ml Oral.Susp PO Q6H PRN Heartburn/Nausea Atorvastatin Calcium 20 mg 01/10/21 21:00 01/14/21 21:17 Atorvastatin Calcium 20 Mg Tablet PO 20 mg BEDTIME JACQUIE Administration Clonazepam 0.5 mg 01/10/21 21:00 01/15/21 08:31 Clonazepam 0.5 Mg Tablet PO 0.5 mg BID JACQIUE Administration Hydroxyzine HCl 25 mg 01/10/21 23:46 Hydroxyzine Hcl 25 Mg Tablet PO BEDTIME PRN Anxiety Indomethacin 25 mg 01/11/21 16:39 Indomethacin 25 Mg Capsule PO DAILY PRN Pain, Moderate (Pain Scale 4-6 Lamotrigine 100 mg 01/11/21 09:30 01/15/21 08:32 Lamotrigine 100 Mg Tablet PO 100 mg BID JACQUIE Administration Lamotrigine 50 mg 01/11/21 09:30 01/15/21 08:32 Lamotrigine 25 Mg Tablet PO 50 mg BID JACQUIE Administration Levothyroxine Sodium 88 mcg 01/11/21 06:30 01/15/21 07:10 Levothyroxine Sodium 88 Mcg Tablet PO 88 mcg DAILY@0630 JACQUIE Administration Lidocaine 1 patch 01/11/21 21:45 01/12/21 13:43 Lidocaine 4 % Patch Adh..Patch TRANSDERMA 1 patch DAILY PRN Administration Pain, Moderate (Pain Scale 4-6 Protocol Magnesium Hydroxide 30 ml 01/10/21 23:46 Milk Of Magnesia 30 Ml Oral.Susp PO DAILY PRN Constipation Patient Own 1 each 01/12/21 09:30 01/15/21 08:33 Medication ([place] PO 1 each Mucil Capsules) DAILY JACQUIE Administration Omeprazole 20 mg 01/11/21 06:30 01/15/21 07:10 Omeprazole 20 Mg Capsule.Dr PO 20 mg DAILY@0630 [facility] Administration Prazosin HCl 2 mg 01/15/21 21:00 Prazosin Hcl 1 Mg Capsule PO BEDTIME [facility] Protocol Trazodone HCl 50 mg 01/10/21 23:46 01/14/21 21:18 Trazodone Hcl 50 Mg Tablet PO 50 mg BEDTIME PRN Administration Insomnia Venlafaxine HCl 75 mg 01/10/21 21:00 01/14/21 21:17 Venlafaxine Hcl Er 75 Mg Cap.Er.24h PO 75 mg BEDTIME JACQUIE Administration Venlafaxine HCl 150 mg 01/10/21 20:00 01/15/21 08:32 Venlafaxine Hcl Er 75 Mg Cap.Er.24h PO 150 mg DAILY JACQUIE Administration Allergies Allergies Allergy/AdvReac Type Severity Reaction Status Date / Time aripiprazole [From [facility]] Allergy Depression Verified 01/09/21 20:20 aspirin Allergy Swelling Verified 01/09/21 20:20 codeine Allergy Anxiety Verified 01/09/21 20:20 duloxetine Allergy Anxiety Verified 01/09/21 20:20 risperidone Allergy Blister Verified 01/09/21 20:20 Assessment & Plan Assessment & Plan (1) MDD (major depressive disorder), recurrent episode, moderate: Status: Acute Code(s): F33.1 - Major depressive disorder, recurrent, moderate (2) Borderline personality disorder: Status: Acute Code(s): F60.3 - Borderline personality disorder Assessment and Plan: continue current medications. Start prasozin 2mg po qhs for nightmares Pt would like to step down to PHP once more stable. She currently does weekly DBT classes. Greater than 50% of the session was spent on counseling and/or coordination of care Reason for contiued inpatient stay Substantial Risk for: harm to self
[2021-01-15] MEDS: Acetaminophen 325 MG TABLET 975 MG PO (19:13)
[2021-01-15 20:36] VITALS: BP 137/71; PULSE 95; RESP 16
[2021-01-15] MEDS: Prazosin HCL 1 MG CAPSULE 2 MG PO (20:53)
[2021-01-15] MEDS: hydrOXYzine HCL 25 MG TABLET PO (20:53)
[2021-01-15] MEDS: Venlafaxine HCl ER 75 MG CAP.ER.24H PO (20:53)
[2021-01-15] MEDS: Atorvastatin Calcium 20 MG TABLET PO (20:53)
[2021-01-16 06:25] VITALS: BP 123/59; PULSE 74; RESP 18; TEMP 36.6; O2SAT 96
[2021-01-16] MEDS: Levothyroxine Sodium 88 MCG TABLET PO (06:29)
[2021-01-16] MEDS: Omeprazole 20 MG CAPSULE.DR PO (06:29)
[2021-01-16] MEDS: lamoTRIgine 100 MG TABLET PO ×2 (09:30→21:17)
[2021-01-16] MEDS: Acetaminophen 325 MG TABLET 975 MG PO ×2 (09:31→18:51)
[2021-01-16] MEDS: lamoTRIgine 25 MG TABLET 50 MG PO ×2 (09:31→21:16)
[2021-01-16] MEDS: Venlafaxine HCl ER 75 MG CAP.ER.24H 150 MG PO (09:32)
--- NOTE | 2021-01-16 15:11 | HO.PSYCHPN ---
Subjective Subjective Date of Service: 01/16/21 Reason For Visit: Depression with sucidal ideation Interim History: Morena been visible in the unit. She has attended all assigned groups and enjoys completing homework. Pt reports she had a rough time yesterday when roommate left because I have never laugh at much as I did with her in my life. Pt states that after roommate left, she felt suicidal but then this subsided. She denies suicidal ideation. She reports prazosin helpful for nightmares. She expresses feeling worried about going home on Friday. Reminded of her skills, and op supports. Pt eager to start PHP as she finds groups therapy very beneficial. Review of Systems Review of Systems Yes all other systems are reviewed and are negative Constitutional: Reports as per HPI and Reports no additional constitutional complaints Eyes: Reports as per HPI and Reports no additional eye complaints Reports system reviewed and no additional complaints, except as documented and Reports as per HPI Cardiovascular: Reports as per HPI and Reports no additional cardiovascular complaints Respiratory: Reports as per HPI and Reports no additional respiratory complaints Gastrointestinal: Reports as per HPI and Reports no additional gastrointestinal complaints Musculoskeletal: Reports no additional musculoskeletal complaints and Reports as per HPI Reports system reviewed and no additional complaints, except as documented and Reports as per HPI Psychiatric: Reports no additional psychiatric complaints, Reports as per HPI and Reports suicidal ideation Mental Status Exam Mental Status Exam Narrative: Appearance: MO, casually groomed, good hygiene, in NAD Behavior: calm, cooperative Psychomotor: no agitation or retardation noted Speech: clear, normal rate/rhythm/volume, spontaneous TP: linear TC: no signs of psychosis, feeling lonely Mood: depressed Affect:much brighter than reported mood SI:passive HI:denies AH/VH:none Delusions:none Insight/judgment:fair x 2. Memory/cog: alert, oriented x 3. grossly intact to conversational testing. Diagnostics Vital Signs (24Hr): Vital Signs - 24 hr 01/15/21 20:36 01/16/21 06:25 Temperature 97.8 F Pulse Rate 95 74 Respiratory Rate 16 18 Blood Pressure 137/71 123/59 L Pulse Oximetry 96 Body Mass Index 45.8 Labs Results: 01/09/21 21:42 01/09/21 21:42 Medications Medications Current Medications Generic Name Dose Route Start Last Admin Trade Name Freq PRN Reason Stop Dose Admin Acetaminophen 975 mg 01/10/21 13:59 01/16/21 09:31 Acetaminophen 325 Mg Tablet PO 975 mg Q6H PRN Administration pain Al Hydroxide/Mg Hydroxide 30 ml 01/10/21 23:46 Magnesium Hydrox/Alum Hydrox 30 Ml Oral.Susp PO Q6H PRN Heartburn/Nausea Atorvastatin Calcium 20 mg 01/10/21 21:00 01/15/21 20:53 Atorvastatin Calcium 20 Mg Tablet PO 20 mg BEDTIME JACQUIE Administration Hydroxyzine HCl 25 mg 01/10/21 23:46 01/15/21 20:53 Hydroxyzine Hcl 25 Mg Tablet PO 25 mg BEDTIME PRN Administration Anxiety Indomethacin 25 mg 01/11/21 16:39 Indomethacin 25 Mg Capsule PO DAILY PRN Pain, Moderate (Pain Scale 4-6 Lamotrigine 100 mg 01/11/21 09:30 01/16/21 09:30 Lamotrigine 100 Mg Tablet PO 100 mg BID JACQUIE Administration Lamotrigine 50 mg 01/11/21 09:30 01/16/21 09:31 Lamotrigine 25 Mg Tablet PO 50 mg BID JACQUIE Administration Levothyroxine Sodium 88 mcg 01/11/21 06:30 01/16/21 06:29 Levothyroxine Sodium 88 Mcg Tablet PO 88 mcg DAILY@0630 JACQUIE Administration Lidocaine 1 patch 01/11/21 21:45 01/12/21 13:43 Lidocaine 4 % Patch Adh..Patch TRANSDERMA 1 patch DAILY PRN Administration Pain, Moderate (Pain Scale 4-6 Protocol Magnesium Hydroxide 30 ml 01/10/21 23:46 Milk Of Magnesia 30 Ml Oral.Susp PO DAILY PRN Constipation Patient Own 1 each 01/12/21 09:30 01/16/21 09:33 Medication ([place] PO 1 each Mucil Capsules) DAILY JACQUIE Administration Omeprazole 20 mg 01/11/21 06:30 01/16/21 06:29 Omeprazole 20 Mg Capsule.Dr PO 20 mg DAILY@0630 JACQUIE Administration Prazosin HCl 2 mg 01/15/21 21:00 01/15/21 20:53 Prazosin Hcl 1 Mg Capsule PO 2 mg BEDTIME JACQUIE Administration Protocol Trazodone HCl 50 mg 01/10/21 23:46 01/14/21 21:18 Trazodone Hcl 50 Mg Tablet PO 50 mg BEDTIME PRN Administration Insomnia Venlafaxine HCl 75 mg 01/10/21 21:00 01/15/21 20:53 Venlafaxine Hcl Er 75 Mg Cap.Er.24h PO 75 mg BEDTIME JACQUIE Administration Venlafaxine HCl 150 mg 01/10/21 20:00 01/16/21 09:32 Venlafaxine Hcl Er 75 Mg Cap.Er.24h PO 150 mg DAILY JACQUIE Administration Allergies Allergies Allergy/AdvReac Type Severity Reaction Status Date / Time aripiprazole [From [facility]] Allergy Depression Verified 01/09/21 20:20 aspirin Allergy Swelling Verified 01/09/21 20:20 codeine Allergy Anxiety Verified 01/09/21 20:20 duloxetine Allergy Anxiety Verified 01/09/21 20:20 risperidone Allergy Blister Verified 01/09/21 20:20 Assessment & Plan Assessment & Plan (1) MDD (major depressive disorder), recurrent episode, moderate: Status: Acute Code(s): F33.1 - Major depressive disorder, recurrent, moderate (2) Borderline personality disorder: Status: Acute Code(s): F60.3 - Borderline personality disorder Assessment and Plan: continue current medications. Start prasozin 2mg po qhs for nightmares Pt would like to step down to PHP once more stable. She currently does weekly DBT classes. Greater than 50% of the session was spent on counseling and/or coordination of care Reason for contiued inpatient stay Substantial Risk for: harm to self
[2021-01-16 21:10] VITALS: BP 158/62; PULSE 92; TEMP 36.6
[2021-01-16] MEDS: Atorvastatin Calcium 20 MG TABLET PO (21:17)
[2021-01-16 21:18] VITALS: BP 158/62; PULSE 92
[2021-01-16] MEDS: Prazosin HCL 1 MG CAPSULE 2 MG PO (21:18)
[2021-01-16] MEDS: Venlafaxine HCl ER 75 MG CAP.ER.24H PO (21:18)
[2021-01-17] MEDS: traZODone HCL 50 MG TABLET PO ×2 (00:26→21:14)
[2021-01-17] MEDS: hydrOXYzine HCL 25 MG TABLET PO ×2 (00:26→21:14)
[2021-01-17 06:15] VITALS: BP 114/61; PULSE 74; RESP 18; TEMP 36.3; O2SAT 98
[2021-01-17] MEDS: Levothyroxine Sodium 88 MCG TABLET PO (06:58)
[2021-01-17] MEDS: Omeprazole 20 MG CAPSULE.DR PO (06:59)
[2021-01-17] MEDS: lamoTRIgine 25 MG TABLET 50 MG PO ×2 (08:21→21:12)
[2021-01-17] MEDS: lamoTRIgine 100 MG TABLET PO ×2 (08:21→21:12)
[2021-01-17] MEDS: Venlafaxine HCl ER 75 MG CAP.ER.24H 150 MG PO (08:21)
[2021-01-17] MEDS: Acetaminophen 325 MG TABLET 975 MG PO (08:22)
--- NOTE | 2021-01-17 15:18 | P.PNPSI_ITS ---
Subjective Subjective Date of Service: 01/17/21 Reason For Visit: Depression with sucidal ideation Interim History: Lidia reports that today has been a good day in that she has enjoyed groups and is quietly doing a puzzle. She reports not having nighmares at night and sleeping better. She reports appetite is as usual. She reports feeling anxious about going home. She denies SI/HI. She has been visible in the unit. Later in day she reported feeling frustrated and increasingly more anxious as son has not reach out to her. Review of Systems Review of Systems Yes all other systems are reviewed and are negative Constitutional: Reports as per HPI and Reports no additional constitutional complaints Eyes: Reports as per HPI and Reports no additional eye complaints Reports system reviewed and no additional complaints, except as documented and Reports as per HPI Cardiovascular: Reports as per HPI and Reports no additional cardiovascular complaints Respiratory: Reports as per HPI and Reports no additional respiratory complaints Gastrointestinal: Reports as per HPI and Reports no additional gastrointestinal complaints Musculoskeletal: Reports no additional musculoskeletal complaints and Reports as per HPI Reports system reviewed and no additional complaints, except as documented and Reports as per HPI Psychiatric: Reports no additional psychiatric complaints, Reports as per HPI and Reports suicidal ideation Mental Status Exam Mental Status Exam Narrative: Appearance: MO, casually groomed, good hygiene, in NAD Behavior: calm, cooperative Psychomotor: no agitation or retardation noted Speech: clear, normal rate/rhythm/volume, spontaneous TP: linear TC: no signs of psychosis, feeling lonely Mood: depressed Affect:much brighter than reported mood SI:passive HI:denies AH/VH:none Delusions:none Insight/judgment:fair x 2. Memory/cog: alert, oriented x 3. grossly intact to conversational testing. Diagnostics Vital Signs (24Hr): Vital Signs - 24 hr 01/16/21 21:10 01/16/21 21:18 01/17/21 06:15 Temperature 97.8 F 97.3 F Pulse Rate 92 92 74 Respiratory Rate 18 Blood Pressure 158/62 H 158/62 H 114/61 Pulse Oximetry 98 Body Mass Index 45.8 Labs Results: 01/09/21 21:42 01/09/21 21:42 Medications Medications Current Medications Generic Name Dose Route Start Last Admin Trade Name Freq PRN Reason Stop Dose Admin Acetaminophen 975 mg 01/10/21 13:59 01/17/21 08:22 Acetaminophen 325 Mg Tablet PO 975 mg Q6H PRN Administration pain Al Hydroxide/Mg Hydroxide 30 ml 01/10/21 23:46 Magnesium Hydrox/Alum Hydrox 30 Ml Oral.Susp PO Q6H PRN Heartburn/Nausea Atorvastatin Calcium 20 mg 01/10/21 21:00 01/16/21 21:17 Atorvastatin Calcium 20 Mg Tablet PO 20 mg BEDTIME JACQUIE Administration Hydroxyzine HCl 25 mg 01/10/21 23:46 01/17/21 00:26 Hydroxyzine Hcl 25 Mg Tablet PO 25 mg BEDTIME PRN Administration Anxiety Indomethacin 25 mg 01/11/21 16:39 Indomethacin 25 Mg Capsule PO DAILY PRN Pain, Moderate (Pain Scale 4-6 Lamotrigine 100 mg 01/11/21 09:30 01/17/21 08:21 Lamotrigine 100 Mg Tablet PO 100 mg BID JACQUIE Administration Lamotrigine 50 mg 01/11/21 09:30 01/17/21 08:21 Lamotrigine 25 Mg Tablet PO 50 mg BID JACQUIE Administration Levothyroxine Sodium 88 mcg 01/11/21 06:30 01/17/21 06:58 Levothyroxine Sodium 88 Mcg Tablet PO 88 mcg DAILY@0630 JACQUIE Administration Lidocaine 1 patch 01/11/21 21:45 01/12/21 13:43 Lidocaine 4 % Patch Adh..Patch TRANSDERMA 1 patch DAILY PRN Administration Pain, Moderate (Pain Scale 4-6 Protocol Magnesium Hydroxide 30 ml 01/10/21 23:46 Milk Of Magnesia 30 Ml Oral.Susp PO DAILY PRN Constipation Patient Own 1 each 01/12/21 09:30 01/17/21 08:21 Medication (Anthony PO 1 each Mucil Capsules) DAILY JACQUIE Administration Omeprazole 20 mg 01/11/21 06:30 01/17/21 06:59 Omeprazole 20 Mg Capsule.Dr PO 20 mg DAILY@0630 JACQUIE Administration Prazosin HCl 2 mg 01/15/21 21:00 01/16/21 21:18 Prazosin Hcl 1 Mg Capsule PO 2 mg BEDTIME JACQUIE Administration Protocol Trazodone HCl 50 mg 01/10/21 23:46 01/17/21 00:26 Trazodone Hcl 50 Mg Tablet PO 50 mg BEDTIME PRN Administration Insomnia Venlafaxine HCl 75 mg 01/10/21 21:00 01/16/21 21:18 Venlafaxine Hcl Er 75 Mg Cap.Er.24h PO 75 mg BEDTIME JACQUIE Administration Venlafaxine HCl 150 mg 01/10/21 20:00 01/17/21 08:21 Venlafaxine Hcl Er 75 Mg Cap.Er.24h PO 150 mg DAILY JACQUIE Administration Allergies Allergies Allergy/AdvReac Type Severity Reaction Status Date / Time aripiprazole [From [facility]] Allergy Depression Verified 01/09/21 20:20 aspirin Allergy Swelling Verified 01/09/21 20:20 codeine Allergy Anxiety Verified 01/09/21 20:20 duloxetine Allergy Anxiety Verified 01/09/21 20:20 risperidone Allergy Blister Verified 01/09/21 20:20 Assessment & Plan Assessment & Plan (1) MDD (major depressive disorder), recurrent episode, moderate: Status: Acute Code(s): F33.1 - Major depressive disorder, recurrent, moderate (2) Borderline personality disorder: Status: Acute Code(s): F60.3 - Borderline personality disorder Assessment and Plan: continue current medications. Start prasozin 2mg po qhs for nightmares Pt would like to step down to PHP once more stable. She currently does weekly DBT classes. Greater than 50% of the session was spent on counseling and/or coordination of care Reason for contiued inpatient stay Substantial Risk for: harm to self
[2021-01-17 18:00] VITALS: BP 124/81; PULSE 92; RESP 18; TEMP 36.2; O2SAT 94
[2021-01-17 21:11] VITALS: BP 135/84; PULSE 97
[2021-01-17] MEDS: Atorvastatin Calcium 20 MG TABLET PO (21:11)
[2021-01-17] MEDS: Prazosin HCL 1 MG CAPSULE 2 MG PO (21:11)
[2021-01-17] MEDS: Venlafaxine HCl ER 75 MG CAP.ER.24H PO (21:11)
[2021-01-17] MEDS: Magnesium Hydrox/Alum Hydrox 30 ML ORAL.SUSP PO (22:32)
[2021-01-18] MEDS: traZODone HCL 50 MG TABLET PO
[2021-01-18 06:00] VITALS: BP 117/56; PULSE 72; RESP 18; TEMP 36.4; O2SAT 97
[2021-01-18] MEDS: Omeprazole 20 MG CAPSULE.DR PO (06:30)
[2021-01-18] MEDS: Levothyroxine Sodium 88 MCG TABLET PO (06:30)
[2021-01-18] MEDS: lamoTRIgine 25 MG TABLET 50 MG PO ×2 (09:55→21:04)
[2021-01-18] MEDS: lamoTRIgine 100 MG TABLET PO ×2 (09:55→21:04)
[2021-01-18] MEDS: Venlafaxine HCl ER 75 MG CAP.ER.24H 150 MG PO (09:55)
[2021-01-18] MEDS: Acetaminophen 325 MG TABLET 975 MG PO ×2 (10:02→16:33)
--- NOTE | 2021-01-18 12:08 | P.PNPSI_ITS ---
Subjective Subjective Date of Service: 01/19/21 Reason For Visit: Depression with sucidal ideation Interim History: Lidia reports difficulty falling and staying asleep last night. She does have hx of sleep apnea but not using cpap. She agrees to see her PCP for new sleep study. She reports improved mood in that she is not as anxious and less overwhelmed by emotions. She has been visible in the unit and attends all assigned groups. No behavioral concerns. Review of Systems Review of Systems Yes all other systems are reviewed and are negative Constitutional: Reports as per HPI and Reports no additional constitutional complaints Eyes: Reports as per HPI and Reports no additional eye complaints Reports system reviewed and no additional complaints, except as documented and Reports as per HPI Cardiovascular: Reports as per HPI and Reports no additional cardiovascular complaints Respiratory: Reports as per HPI and Reports no additional respiratory complaints Gastrointestinal: Reports as per HPI and Reports no additional gastrointestinal complaints Musculoskeletal: Reports no additional musculoskeletal complaints and Reports as per HPI Reports system reviewed and no additional complaints, except as documented and Reports as per HPI Psychiatric: Reports no additional psychiatric complaints, Reports as per HPI and Reports suicidal ideation Mental Status Exam Mental Status Exam Narrative: Appearance: MO, casually groomed, good hygiene, in NAD Behavior: calm, cooperative Psychomotor: no agitation or retardation noted Speech: clear, normal rate/rhythm/volume, spontaneous TP: linear TC: no signs of psychosis, future oriented Mood: better Affect:congruent, brighter, non labile SI:none HI:denies AH/VH:none Delusions:none Insight/judgment:fair x 2. Memory/cog: alert, oriented x 3. grossly intact to conversational testing. Diagnostics Vital Signs (24Hr): Vital Signs - 24 hr 01/18/21 18:00 01/18/21 21:05 01/19/21 06:00 Temperature 98.8 F 98.9 F Pulse Rate 85 86 74 Respiratory Rate 18 16 Blood Pressure 133/64 155/70 H 134/74 Pulse Oximetry 96 98 Body Mass Index 45.8 Labs Results: 01/09/21 21:42 01/09/21 21:42 Medications Medications Current Medications Generic Name Dose Route Start Last Admin Trade Name Freq PRN Reason Stop Dose Admin Acetaminophen 975 mg 01/10/21 13:59 01/19/21 05:26 Acetaminophen 325 Mg Tablet PO 975 mg Q6H PRN Administration pain Al Hydroxide/Mg Hydroxide 30 ml 01/10/21 23:46 01/19/21 09:58 Magnesium Hydrox/Alum Hydrox 30 Ml Oral.Susp PO 30 ml Q6H PRN Administration Heartburn/Nausea Atorvastatin Calcium 20 mg 01/10/21 21:00 01/18/21 21:05 Atorvastatin Calcium 20 Mg Tablet PO 20 mg BEDTIME JACQUIE Administration Clonazepam 0.5 mg 01/18/21 13:00 01/19/21 08:51 Clonazepam 0.5 Mg Tablet PO 0.5 mg BID JACQUIE Administration Hydroxyzine HCl 25 mg 01/10/21 23:46 01/17/21 21:14 Hydroxyzine Hcl 25 Mg Tablet PO 25 mg BEDTIME PRN Administration Anxiety Indomethacin 25 mg 01/11/21 16:39 Indomethacin 25 Mg Capsule PO DAILY PRN Pain, Moderate (Pain Scale 4-6 Lamotrigine 100 mg 01/11/21 09:30 01/19/21 08:51 Lamotrigine 100 Mg Tablet PO 100 mg BID JACQUIE Administration Lamotrigine 50 mg 01/11/21 09:30 01/19/21 08:51 Lamotrigine 25 Mg Tablet PO 50 mg BID JACQUIE Administration Levothyroxine Sodium 88 mcg 01/11/21 06:30 01/19/21 05:27 Levothyroxine Sodium 88 Mcg Tablet PO 88 mcg DAILY@30 JACQUIE Administration Lidocaine 1 patch 01/11/21 21:45 01/12/21 13:43 Lidocaine 4 % Patch Adh..Patch TRANSDERMA 1 patch DAILY PRN Administration Pain, Moderate (Pain Scale 4-6 Protocol Magnesium Hydroxide 30 ml 01/10/21 23:46 Milk Of Magnesia 30 Ml Oral.Susp PO DAILY PRN Constipation Patient Own 1 each 01/12/21 09:30 01/19/21 08:50 Medication ([place] PO 1 each Mucil Capsules) DAILY JACQUIE Administration Omeprazole 20 mg 01/11/21 06:30 01/19/21 05:27 Omeprazole 20 Mg Capsule.Dr PO 20 mg DAILY@30 JACQUIE Administration Prazosin HCl 2 mg 01/15/21 21:00 01/18/21 21:05 Prazosin Hcl 1 Mg Capsule PO 2 mg BEDTIME JACQUIE Administration Protocol Trazodone HCl 50 mg 01/10/21 23:46 01/18/21 00:00 Trazodone Hcl 50 Mg Tablet PO 50 mg BEDTIME PRN Administration Insomnia Venlafaxine HCl 75 mg 01/10/21 21:00 01/18/21 21:04 Venlafaxine Hcl Er 75 Mg Cap.Er.24h PO 75 mg BEDTIME JACQUIE Administration Venlafaxine HCl 150 mg 01/10/21 20:00 01/19/21 08:50 Venlafaxine Hcl Er 75 Mg Cap.Er.24h PO 150 mg DAILY JACQUIE Administration Allergies Allergies Allergy/AdvReac Type Severity Reaction Status Date / Time aripiprazole [From [facility]] Allergy Depression Verified 01/09/21 20:20 aspirin Allergy Swelling Verified 01/09/21 20:20 codeine Allergy Anxiety Verified 01/09/21 20:20 duloxetine Allergy Anxiety Verified 01/09/21 20:20 risperidone Allergy Blister Verified 01/09/21 20:20 Assessment & Plan Assessment & Plan (1) MDD (major depressive disorder), recurrent episode, moderate: Status: Acute Code(s): F33.1 - Major depressive disorder, recurrent, moderate (2) Borderline personality disorder: Status: Acute Code(s): F60.3 - Borderline personality disorder Assessment and Plan: continue current medications. continue prasozin 2mg po qhs for nightmares Pt would like to step down to PHP once more stable. She currently does weekly DBT classes. Greater than 50% of the session was spent on counseling and/or coordination of care Reason for contiued inpatient stay Substantial Risk for: stable for discharge
[2021-01-18] MEDS: clonazePAM 0.5 MG TABLET PO ×2 (14:50→21:04)
[2021-01-18 18:00] VITALS: BP 133/64; PULSE 85; RESP 18; TEMP 37.1; O2SAT 96
[2021-01-18] MEDS: Venlafaxine HCl ER 75 MG CAP.ER.24H PO (21:04)
[2021-01-18 21:05] VITALS: BP 155/70; PULSE 86
[2021-01-18] MEDS: Atorvastatin Calcium 20 MG TABLET PO (21:05)
[2021-01-18] MEDS: Prazosin HCL 1 MG CAPSULE 2 MG PO (21:05)
[2021-01-19] MEDS: Acetaminophen 325 MG TABLET 975 MG PO (05:26)
[2021-01-19] MEDS: Levothyroxine Sodium 88 MCG TABLET PO (05:27)
[2021-01-19] MEDS: Omeprazole 20 MG CAPSULE.DR PO (05:27)
[2021-01-19 06:00] VITALS: BP 134/74; PULSE 74; RESP 16; TEMP 37.2; O2SAT 98
[2021-01-19] MEDS: Venlafaxine HCl ER 75 MG CAP.ER.24H 150 MG PO (08:50)
[2021-01-19] MEDS: clonazePAM 0.5 MG TABLET PO (08:51)
[2021-01-19] MEDS: lamoTRIgine 100 MG TABLET PO (08:51)
[2021-01-19] MEDS: lamoTRIgine 25 MG TABLET 50 MG PO (08:51)
--- NOTE | 2021-01-19 09:05 | PM.PSYDC ---
DS: Providers Provider Date of Service: 01/29/21 Date of admission: 01/10/21 22:26 Primary care physician: Akira Choe MD DS: Diagnosis Discharge Diagnosis (1) MDD (major depressive disorder), recurrent episode, moderate: Status: Acute (2) Borderline personality disorder: Status: Acute DS: Medications Discharge Medications Home Medications: Home Medications Medication Instructions Recorded Confirmed acetaminophen 650 mg PO Q8H PRN 01/10/21 01/10/21 levothyroxine 1 tab PO DAILY@30 01/10/21 01/10/21 omeprazole 1 cap PO DAILY@0630 01/10/21 01/10/21 psyllium husk [Metamucil] 0.52 g PO DAILY 01/10/21 01/10/21 simvastatin 1 tab PO BEDTIME 01/10/21 01/10/21 venlafaxine 1 cap PO BEDTIME 01/10/21 01/10/21 venlafaxine 2 cap PO DAILY 01/10/21 01/10/21 Previous Rx's Medication Instructions Recorded clonazepam 1 tab PO BID 10 Days #20 tab 01/19/21 lamotrigine 1 tab PO BID 15 Days #30 tab 01/19/21 prazosin 2 mg PO BEDTIME 7 Days #14 cap 01/19/21 trazodone 50 mg PO BEDTIME PRN 10 Days #10 01/19/21 tab Discharge Plan Discharge Patient Disposition: Home, Self-Care Discharge Diagnosis: MDD, recurrent, moderate Referrals: Renetta Gonzalez (therapist) [Other] - 01/22/21 5:00 pm (Video appointment) Partial Hospitalization Program (PHP) [Other] - 01/23/21 7:30 am (You will receive a link sent to your email for the intake appointment. If the link is not there or is not working, please call the number listed above. You will start the program directly following intake appointment) Dr. Alamo (psychiatrist) [Other] - 02/15/21 2:30 pm (Telehealth appointment) [facility] [Other] (Referral for services submitted. They will reach out to you to set up a time to conduct an assessment) Akira Choe MD [Primary Care Provider] - 01/23/21 1:30 pm Discharge Medications: New trazodone 50 mg Tablet 50 mg PO BEDTIME PRN (Reason: Insomnia) 10 Days Qty: 10 RF: 0 prazosin 1 mg Capsule 2 mg PO BEDTIME 7 Days Qty: 14 RF: 1 Continued venlafaxine 75 mg capsule,extended release 24hr 2 cap PO DAILY RF: 0 venlafaxine 75 mg capsule,extended release 24hr 1 cap PO BEDTIME RF: 0 simvastatin 40 mg tablet 1 tab PO BEDTIME RF: 0 acetaminophen 650 mg Tablet Extended Release 650 mg PO Q8H PRN (Reason: Pain (Scale Score 1-3)) RF: 0 levothyroxine 88 mcg tablet 1 tab PO DAILY@0630 RF: 0 omeprazole 20 mg capsule,delayed release(DR/EC) 1 cap PO DAILY@0630 RF: 0 psyllium husk [Metamucil] 0.52 gram Capsule 0.52 g PO DAILY RF: 0 lamotrigine 150 mg tablet 1 tab PO BID 15 Days Qty: 30 RF: 0 clonazepam 0.5 mg tablet 1 tab PO BID 10 Days Qty: 20 RF: 0 Discharge Orders: Discharge Order (Routine); Ordered 01/19/21 Ordered By: Holly Ro Diet: regular diet Activity on Discharge: As tolerated Stand Alone Forms: Patient Portal Discharge page, Community Support Care Plan Goals: 1. Improve mood. 2. No self injurious behaviors Health Concerns: Follow up with PCP re: HTN, sleep apnea (new sleep study). Plan of Treatment: 1. Take medications as prescribed. Medications locked and given by [facility] 2. Follow up with referrals. Assessment: Stable Discharge Date/Time: 01/19/21 14:35 Mental Status Exam Mental Status Exam Narrative: Appearance: MO, casually groomed, good hygiene, in NAD Behavior: calm, cooperative Psychomotor: no agitation or retardation noted Speech: clear, normal rate/rhythm/volume, spontaneous TP: linear TC: no signs of psychosis, future oriented Mood: better Affect:congruent, brighter, non labile SI:none HI:denies AH/VH:none Delusions:none Insight/judgment:fair x 2. Memory/cog: alert, oriented x 3. grossly intact to conversational testing. Data Data Completed and Pending Completed studies during hospitalization [Text1]: 01/12/21 01/12/21 01/12/21 08:03 08:03 08:03 Estimat Average Glucose 166 Hemoglobin A1c % 7.4 Triglycerides 173 Cholesterol 199 LDL Cholesterol, Calc 111 HDL Cholesterol 54 Vitamin B12 257 Folate 8.3 DS: Summary Hospital Course Hospital Course: Ms. Mayorga is a 65 year-old woman with hx of PTSD, BPD, DID, who was self presented to [facility] after she had session with OP psychotherapist and reported suicidal ideation with plan to OD. In the ED her utox was negative. On the unit, Ms. Mayorga reports that for past several months she has been feeling increasingly more depressed. She is able to identify several triggers including fact that she is not able to gather with people from [employer] as she used to due to COVID, her therapist of last year left and she has new therapist and apparently she felt rejected by her daughter in law. Ms. Mayorga has some insight into her chronic fear of abandonment and feelings of emptiness. She has been in psychotherapy for more than 20 years, 15 of them with same therapist who retired 2 years ago. Ms. Mayorga also reports that she has multiple identities which her [facility] psychotherapist use to work with her on forming a more cohesive integration of these multiple identities. Pt reports that current therapist not comfortable about let her bring these identities in the session. Pt reports she was sleeping and eating well. She denies VH/AH. Most of her themes are related to personality traits, which pt appears to have done significant work over the years. Pt continues to report passive suicidal ideation but denies any plan or intent. Past Psychiatric History: Inpatient: multiple inpt admissions, but last one was 2 years ago at [facility] OP: [facility] Suicide attempt: pt reports 2; one in 88' OD, second in 90's cut wrist. Self injurious behaviors: pt reports hx of SIB to relief emotional pain but she stopped 10 years ago and is clear that this is not an option now when she feels emotionally distressed. Medication trials: multiple, including risperidone, abilify, cymbalta, best combinatino of medications is the one she has now including lamictal. HOSPITAL COURSE On the unit, Ms. Mayorga presented as pleasant. She reported multiple losses in past year including psychotherapist leaving practice after a year and having new therapist. She reported not being able to see people from [employer] due to covid. Pt insightful about borderline traits and difficulty with people leaving out of her life. She reported passive suicidal ideation but denied any plan or intent. We discussed risks, benefits and alternative treatment options. No medication changes other than adding prazosin for nightmares were made during admission as pt has had multiple medication changes throughout her life and current combination of lamictal appears to work best for her. Ms. Mayorga was visible in the unit. She was social with select peers and attended all assigned groups. She participated actively in treatment. She was sleeping and eating well. She does have hx of sleep apnea and has not used CPAP for more than 2 years. She agrees to follow up with [facility] PCP to schedule new sleep study. Pt agreed to step down to [facility] for further support. Collateral information gathered from her OP therapist and family who denied safety concerns at time of discharge. There were no incidences of disruptive behaviors nor use of restraints. Status at Discharge Cognitive/behavioral status at discharge: Pt with less symptoms of depression. NO SI/HI. No self injurious behaviors. future oriented and in agreement to continue OP treatment. Functional status at discharge: independent ambulation Overall status at discharge: patient is back to baseline Time Spent with Patient Time attestation: Total time spent providing and/or coordinating discharge services: Time spent: Greater than 30 minutes
[2021-01-19] MEDS: Magnesium Hydrox/Alum Hydrox 30 ML ORAL.SUSP PO (09:58)
== END 2021-01-19 14:35 | disposition home or self-care (01) | DRG 885 ==
LOC: HO.ED 01-10 21:03 → HO.PM5 01-10 22:29
PROVIDERS: Physician Assistant; Physician Assistant Medical; Admitting Provider Clinical Nurse Specialist Psychiatric/Mental Health; Emergency Provider Emergency Medicine Emergency Medical Services; PCP Internal Medicine; Visit Provider Social Worker
DX: F33.1 Major depressive disorder, recurrent, moderate (principal); R45.851 Suicidal ideations; F60.3 Borderline personality disorder; Z20.822 Contact with and (suspected) exposure to COVID-19; Z88.5 Allergy status to narcotic agent; Z88.6 Allergy status to analgesic agent; Z79.890 Hormone replacement therapy; Z79.899 Other long term (current) drug therapy
CPT/HCPCS: 36415; 80053; 80061; 80076; 80307; 80320; 82607; 82746; 83036; 85025; 85610; 85730; 87635; 93005; 99285

== ENCOUNTER 2021-02-21 11:00 | Outpatient (RCR) | payer MEDICARE, MEDICAID, SELFPAY ==
[2021-01-23 13:03] VITALS: BMI 45.8
--- NOTE | 2021-01-23 13:45 | HO.PS.ADMBH ---
HPI Chief Complaint: MDD, BPD Sources of Information: patient interviewed and chart reviewed HPI Narrative: The patient is a 65 year old female, , mother of 2 adult children, with a long history of multiple psychiatric admissions mostly for suicidality. She carries the diagnosis of Borderline Personality disorder, PTSD and Major Depressive disorder. She was recently discharged from after her therapist sent her to the ED due to suicidal ideation. Over there, she was titrated up of Effexor up to 225 mg and other medications. She has outpatient services at [facility] in 1 month. During the intake, she stated that now she is doing fine, with no evidence of suicidal ideation but the last weekend, she was more dysphoric but safe. She is currently attending [facility] as a step-down and so far, she is doing fine. No safety concerns. Past Psychiatric History: Inpatient: multiple inpt admissions, but last one was 2 years ago [address] [facility] OP: [facility] Suicide attempt: pt reports 2; one in 88' OD, second in 90's cut wrist. Self injurious behaviors: pt reports hx of SIB to relief emotional pain but she stopped 10 years ago and is clear that this is not an option now when she feels emotionally distressed. Medication trials: multiple, including risperidone, abilify, cymbalta, best combinatino of medications is the one she has now including lamictal. Medical Evaluation Reviewed: Yes [facility] Medical History Arthritis Failed total knee, right Fibromyalgia GERD (gastroesophageal reflux disease) Hyperlipidemia Hypothyroidism Sciatica Sleep apnea Spinal stenosis Family History: unknown Social History: lives alone. Has two adult children ages 40 and 42. . Trauma History: extensive childhood trauma, details not disclosed. Diagnostics Vital Signs (24Hr): Body Mass Index 45.8 Meds/Allergies Allergies Allergies Allergy/AdvReac Type Severity Reaction Status Date / Time aripiprazole [From [facility]] Allergy Depression Verified 01/09/21 20:20 aspirin Allergy Swelling Verified 01/09/21 20:20 codeine Allergy Anxiety Verified 01/09/21 20:20 duloxetine Allergy Anxiety Verified 01/09/21 20:20 risperidone Allergy Blister Verified 01/09/21 20:20 Mental Status Exam Mental Status Exam Patient Appearance: Well Grooomed Patient Orientation: Person, Place, Time and Situation Level of Consciousness: Awake Patient Behavior: Appropriate Mood Description: Calm Affect Description: Withdrawn Patient Cognition Impaired: No Ability to Follow Directions: Good Speech Pattern: Clear Memory Description: Intact Hallucinations: None Delusions: Not Present Thought Process: Goal Oriented Thought Content: positive for Intact Judgement: Fair Assessment & Plan Assessment & Plan (1) MDD (major depressive disorder), recurrent episode, moderate: Status: Acute Code(s): F33.1 - Major depressive disorder, recurrent, moderate Assessment and Plan: Continue same treatment (2) Borderline personality disorder: Status: Acute Code(s): F60.3 - Borderline personality disorder Certification I certify that partial hospital treatment is medically necessary due to the symptoms and problems resulting from the patient's mental illness and the failure to treat the patient at the partial hospital level of care would likely result in the patient requiring inpatient psychiatric care which could not be prevented at a less intensive level of care. Telehealth Telehealth Location of provider rendering services: practice address Location of patient: address on file Patient Identification confirmed using: Name, : Yes Telehealth method: video Patient verbally consented to treatment: Yes Patient verbally consented to billing insurance company: Yes Patient informed of any privacy concerns related to visit: No Time spent with patient (mins): 45
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
--- NOTE | 2021-01-23 15:19 | PC.NURSE ---
Case opened in treatment team
--- NOTE | 2021-01-30 14:00 | HO.PHPPROGNO ---
Subjective Subjective Date of Service: 01/30/21 Reason For Visit: MDD, BPD Interim History: The patient reported that she was doing well. Today, while she was in the group, she was triggered and she had the feeling of hurting herself but she used her coping skills and she didn't hurt herself at all. Her sleep has been around 6 hours per night. Medication Compliance: Yes Side effects from medications: No Attending Groups: Yes Review of Systems Review of Systems Yes all other systems are reviewed and are negative Mental Status Exam Mental Status Exam Patient Appearance: Well Grooomed Patient Orientation: Person, Place, Time and Situation Level of Consciousness: Awake Patient Behavior: Appropriate Mood Description: Calm and Withdrawn Affect Description: Calm Patient Cognition Impaired: No Ability to Follow Directions: Good Speech Pattern: Clear Memory Description: Intact Hallucinations: None Delusions: Not Present Thought Process: Goal Oriented Thought Content: positive for Intact Judgement: Fair Diagnostics Vital Signs (24Hr): Body Mass Index 45.8 Assessment & Plan Assessment & Plan (1) MDD (major depressive disorder), recurrent episode, moderate: Status: Acute Code(s): F33.1 - Major depressive disorder, recurrent, moderate Assessment and Plan: The patient is a middle age female with MDD and borderline personality disorder with several admissions into the hospital for suicidality, recenlty discharged from [facility]. So far, able to participate in groups and able to use her coping skills to avoid self-harm. Plan: Keep same treatment (2) Borderline personality disorder: Status: Acute Code(s): F60.3 - Borderline personality disorder Certification I certify that partial hospital treatment is medically necessary due to the symptoms and problems resulting from the patient's mental illness and the failure to treat the patient at the partial hospital level of care would likely result in the patient requiring inpatient psychiatric care which could not be prevented at a less intensive level of care. Greater than 50% of the session was spent on counseling and/or coordination of care Discharge Plan Discharge Attending provider: Steve Ortiz Primary Care Provider: Akira Choe Medications: No Action venlafaxine 75 mg capsule,extended release 24hr 2 cap PO DAILY RF: 0 venlafaxine 75 mg capsule,extended release 24hr 1 cap PO BEDTIME RF: 0 simvastatin 40 mg tablet 1 tab PO BEDTIME RF: 0 acetaminophen 650 mg Tablet Extended Release 650 mg PO Q8H PRN (Reason: Pain (Scale Score 1-3)) RF: 0 levothyroxine 88 mcg tablet 1 tab PO DAILY@0630 RF: 0 omeprazole 20 mg capsule,delayed release(DR/EC) 1 cap PO DAILY@0630 RF: 0 psyllium husk [Metamucil] 0.52 gram Capsule 0.52 g PO DAILY RF: 0 trazodone 50 mg Tablet 50 mg PO BEDTIME PRN (Reason: Insomnia) 10 Days Qty: 10 RF: 0 prazosin 1 mg Capsule 2 mg PO BEDTIME 7 Days Qty: 14 RF: 1 lamotrigine 150 mg tablet 1 tab PO BID 15 Days Qty: 30 RF: 0 clonazepam 0.5 mg tablet 1 tab PO BID 10 Days Qty: 20 RF: 0 Referrals: Akira Choe MD [Primary Care Provider] - 1 Week Telehealth Telehealth Location of provider rendering services: practice address Location of patient: address on file Patient Identification confirmed using: Name, : Yes Telehealth method: video Patient verbally consented to treatment: Yes Patient verbally consented to billing insurance company: Yes Patient informed of any privacy concerns related to visit: No Time spent with patient (mins): 15
--- NOTE | 2021-01-30 14:13 | PC.NURSE ---
Pt reported in group having suicidal thoughts during lunch break but practicing coping skills instead. Called pt to assess her need and suicidality. She reported that she was not having suicidal thoughts at this point and that she was safe. She was able to identify coping strategies to help her get through the night and that if her thoughts got worse, she would call crisis.
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
--- NOTE | 2021-02-01 10:54 | PC.NURSE ---
Patient stated her doctor would like her to lose some weight and requested some information regarding this. Emailed patient information on healthy eating and gave patient some tips on how to start. Also suggested patient visit [employer] for more information on how to eat healthy. Patient also advised to call her PCP and see if they can set up a referral for a dietary consult if possible.
--- NOTE | 2021-02-05 13:38 | HO.PHPPROGNO ---
Subjective Subjective Date of Service: 02/05/21 Reason For Visit: MDD, BPD Interim History: The patient reported that she felt triggered with a group regarding bounderies. She knows that her daughter does not give her access to her grandchildren. No safety issues at this moment Medication Compliance: Yes Side effects from medications: No Attending Groups: Yes Review of Systems Acute medical concerns: No Medical Review of Systems: unchanged Mental Status Exam Mental Status Exam Patient Appearance: Well Grooomed Patient Orientation: Person, Place, Time and Situation Level of Consciousness: Awake Patient Behavior: Appropriate and Cooperative Mood Description: Calm Affect Description: Withdrawn Patient Cognition Impaired: No Ability to Follow Directions: Good Speech Pattern: Clear Memory Description: Intact Hallucinations: None Delusions: Not Present Thought Process: Goal Oriented Thought Content: positive for Intact Judgement: Fair Diagnostics Vital Signs (24Hr): Body Mass Index 45.8 Assessment & Plan Assessment & Plan (1) MDD (major depressive disorder), recurrent episode, moderate: Status: Acute Code(s): F33.1 - Major depressive disorder, recurrent, moderate Assessment and Plan: Middle age female with MDD and Borderline Personality disorder, referred for continuation of treatment. Plan: Keep same treatment. (2) Borderline personality disorder: Status: Acute Code(s): F60.3 - Borderline personality disorder Certification I certify that partial hospital treatment is medically necessary due to the symptoms and problems resulting from the patient's mental illness and the failure to treat the patient at the partial hospital level of care would likely result in the patient requiring inpatient psychiatric care which could not be prevented at a less intensive level of care. Greater than 50% of the session was spent on counseling and/or coordination of care Discharge Plan Discharge Attending provider: Steve Ortiz Primary Care Provider: Akira Choe Medications: Continued trazodone 50 mg Tablet 50 mg PO BEDTIME PRN (Reason: Insomnia) 14 Days Qty: 14 RF: 1 prazosin 1 mg Capsule 2 mg PO BEDTIME 14 Days Qty: 28 RF: 1 No Action venlafaxine 75 mg capsule,extended release 24hr 2 cap PO DAILY RF: 0 venlafaxine 75 mg capsule,extended release 24hr 1 cap PO BEDTIME RF: 0 simvastatin 40 mg tablet 1 tab PO BEDTIME RF: 0 acetaminophen 650 mg Tablet Extended Release 650 mg PO Q8H PRN (Reason: Pain (Scale Score 1-3)) RF: 0 levothyroxine 88 mcg tablet 1 tab PO DAILY@0630 RF: 0 omeprazole 20 mg capsule,delayed release(DR/EC) 1 cap PO DAILY@0630 RF: 0 psyllium husk [Metamucil] 0.52 gram Capsule 0.52 g PO DAILY RF: 0 lamotrigine 150 mg tablet 1 tab PO BID 15 Days Qty: 30 RF: 0 clonazepam 0.5 mg tablet 1 tab PO BID 10 Days Qty: 20 RF: 0 Referrals: Akira Choe MD [Primary Care Provider] - 1 Week Telehealth Telehealth Location of provider rendering services: practice address Location of patient: address on file Patient Identification confirmed using: Name, : Yes Telehealth method: video Patient verbally consented to treatment: Yes Patient verbally consented to billing insurance company: Yes Patient informed of any privacy concerns related to visit: No Time spent with patient (mins): 15
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
--- NOTE | 2021-02-21 12:03 | PC.NURSE ---
I spoke with client therapist Natalya Peter re clients dc today and progress in tx.
--- NOTE | 2021-02-21 13:44 | P.PNPSP_ITS ---
Subjective Subjective Date of Service: 02/21/21 Reason For Visit: MDD, BPD Interim History: The patient reports feeling better. She has J LUIS but she has not used her CPAP machine in 2 years and she is going to see her PCP. She is a little anxious since she is leaving the program but there is no safety concerns. Medication Compliance: Yes Side effects from medications: No Attending Groups: Yes Review of Systems Acute medical concerns: No Medical Review of Systems: unchanged Mental Status Exam Mental Status Exam Patient Appearance: Well Grooomed Patient Orientation: Person, Place, Time and Situation Level of Consciousness: Awake and Appropriate Patient Behavior: Appropriate Mood Description: Calm Affect Description: Appropriate Patient Cognition Impaired: No Ability to Follow Directions: Good Speech Pattern: Clear Memory Description: Intact Hallucinations: None Delusions: Not Present Thought Process: Goal Oriented Thought Content: positive for Intact Judgement: Fair Diagnostics Vital Signs (24Hr): Body Mass Index 45.8 Assessment & Plan Assessment & Plan (1) MDD (major depressive disorder), recurrent episode, moderate: Status: Acute Code(s): F33.1 - Major depressive disorder, recurrent, moderate Assessment and Plan: Middle age female with MDD and Borderline Personality Disorder referred to [facility] for exacerbation of depression. Currently , doing very well, ready for D/C. Plan: Keep same treatment (2) Borderline personality disorder: Status: Acute Code(s): F60.3 - Borderline personality disorder Certification I certify that partial hospital treatment is medically necessary due to the symptoms and problems resulting from the patient's mental illness and the failure to treat the patient at the partial hospital level of care would likely result in the patient requiring inpatient psychiatric care which could not be prevented at a less intensive level of care. Greater than 50% of the session was spent on counseling and/or coordination of care Discharge Plan Discharge Attending provider: Steve Ortiz Primary Care Provider: Akira Choe Medications: Continued trazodone 50 mg Tablet 50 mg PO BEDTIME PRN (Reason: Insomnia) 14 Days Qty: 14 RF: 1 prazosin 1 mg Capsule 2 mg PO BEDTIME 30 Days Qty: 60 RF: 1 No Action venlafaxine 75 mg capsule,extended release 24hr 2 cap PO DAILY RF: 0 venlafaxine 75 mg capsule,extended release 24hr 1 cap PO BEDTIME RF: 0 simvastatin 40 mg tablet 1 tab PO BEDTIME RF: 0 acetaminophen 650 mg Tablet Extended Release 650 mg PO Q8H PRN (Reason: Pain (Scale Score 1-3)) RF: 0 levothyroxine 88 mcg tablet 1 tab PO DAILY@0630 RF: 0 omeprazole 20 mg capsule,delayed release(DR/EC) 1 cap PO DAILY@0630 RF: 0 psyllium husk [Metamucil] 0.52 gram Capsule 0.52 g PO DAILY RF: 0 lamotrigine 150 mg tablet 1 tab PO BID 15 Days Qty: 30 RF: 0 clonazepam 0.5 mg tablet 1 tab PO BID 10 Days Qty: 20 RF: 0 Referrals: Akira Choe MD [Primary Care Provider] - 1 Week Stand Alone Forms: Patient Portal Discharge page Telehealth Telehealth Location of provider rendering services: practice address Location of patient: address on file Patient Identification confirmed using: Name, : Yes Telehealth method: video Patient verbally consented to treatment: Yes Patient verbally consented to billing insurance company: Yes Patient informed of any privacy concerns related to visit: No Time spent with patient (mins): 15
--- NOTE | 2021-02-21 14:02 | PC.NURSE ---
Patient discharged from the program today. Reviewed patient medication list with patient. Medication education provided. Patient reports taking medications as prescribed.
== END 2021-02-22 08:26 | disposition home or self-care (01) ==
LOC: HO.PHPA 11:00
PROVIDERS: PCP Internal Medicine; Visit Provider Psychiatry & Neurology Psychiatry
DX: F33.1 Major depressive disorder, recurrent, moderate (principal); F60.3 Borderline personality disorder; Z79.899 Other long term (current) drug therapy
CPT/HCPCS: 90791; 90853

== ENCOUNTER 2021-04-27 08:30 | Outpatient (RCR) | payer MEDICARE, MEDICAID, SELFPAY ==
[2021-03-30 13:12] VITALS: BMI 43.5
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
--- NOTE | 2021-04-02 14:56 | HO.PHPPROGNO ---
Subjective Subjective Date of Service: 04/02/21 Reason For Visit: MDD, PTSD, Depression, Anxiety Guardianship: No Medical Problems Affecting Mental Status: No Interim History: Lidia reports that she has switched her Effexor dosing from b.i.d. to taking it once daily. She states that she has not really noticed a difference yet. She states that she is tired this morning, but thinks it is due to taking any trazodone last night.. No safety concerns at this time, no thoughts of harm to self or others. We discussed continuing trying the Effexor once daily for several more days, to see if she notices a difference with improved sleep at night. She stated that she would do this. We discussed trazodone dosing, and how it can affect feeling tired the next morning in some people. She says that she has this effect when she takes it. One possibility would be to take the medication and our earlier, to see if it helps reduce any lingering feelings of sedation in the morning. No medication changes at this time. Will follow up with patient next week. Medication Compliance: Yes Side effects from medications: Yes ( Feeling tired this morning, she attributed this to trazodone last night.) Attending Groups: Yes Review of Systems Review of Systems A full review of systems was completed, and was negative except for feeling tired this morning. patient does report continued feelings of depression. Yes all other systems are reviewed and are negative Mental Status Exam Mental Status Exam Patient Appearance: Well Grooomed and Appropriate Patient Orientation: Person, Place, Time and Situation Level of Consciousness: Awake, Appropriate and Alert Patient Behavior: Appropriate and Cooperative Mood Description: Calm, Appropriate and Depressed Affect Description: Depressed and Flat Patient Cognition Impaired: No Ability to Follow Directions: Excellent Speech Pattern: Clear Memory Description: Intact Hallucinations: None Delusions: Not Present Thought Process: Intact Thought Content: positive for Intact Depressive Symptoms: Increased Anxiety, Insomnia and Increased Fatigue Judgement: Good Diagnostics Vital Signs (24Hr): Body Mass Index 43.5 Assessment & Plan Assessment & Plan (1) MDD (major depressive disorder), recurrent episode, moderate: Status: Acute Code(s): F33.1 - Major depressive disorder, recurrent, moderate Assessment and Plan: Patient feeling tired this morning, a tree use this to using trazodone last night. Has been taking Effexor in the morning to see if that helps improve sleep, has not noticed a difference yet. Will continue to try this for several more days. No medication changes at this time. Will follow up with patient next week, sooner if needed. Patient educated on: diagnosis, medication risk/benefits and therapeutic strategies Reason for contiued partial hosp. stay Substantial Risk for: inability to function and med/psych decompensation Certification I certify that partial hospital treatment is medically necessary due to the symptoms and problems resulting from the patient's mental illness and the failure to treat the patient at the partial hospital level of care would likely result in the patient requiring inpatient psychiatric care which could not be prevented at a less intensive level of care. Greater than 50% of the session was spent on counseling and/or coordination of care Discharge Plan Discharge Attending provider: Steve Ortiz Primary Care Provider: Akira Choe Medications: No Action trazodone 50 mg Tablet 50 mg PO BEDTIME PRN (Reason: Insomnia) 14 Days Qty: 14 RF: 1 prazosin 1 mg Capsule 2 mg PO BEDTIME 30 Days Qty: 60 RF: 1 acetaminophen [Tylenol Arthritis] 650 mg Tablet Extended Release 650 mg PO Q12H PRN (Reason: Pain) RF: 0 venlafaxine 75 mg capsule,extended release 24hr 3 cap PO DAILY RF: 0 simvastatin 40 mg tablet 1 tab PO BEDTIME RF: 0 levothyroxine 88 mcg tablet 1 tab PO DAILY@0630 RF: 0 omeprazole 20 mg capsule,delayed release(DR/EC) 1 cap PO DAILY@0630 RF: 0 lamotrigine 150 mg tablet 1 tab PO BID 15 Days Qty: 30 RF: 0 clonazepam 0.5 mg tablet 1 tab PO BID 10 Days Qty: 20 RF: 0 Telehealth Telehealth Location of provider rendering services: practice address Location of patient: address on file Patient Identification confirmed using: Name, : Yes Telehealth method: video Patient verbally consented to treatment: Yes Patient verbally consented to billing insurance company: Yes Patient informed of any privacy concerns related to visit: Yes Time spent with patient (mins): 15
--- NOTE | 2021-04-02 15:08 | PC.NURSE ---
Case opened in treatment team
--- NOTE | 2021-04-06 09:51 | PC.NURSE ---
Patient recently diagnosed with Type II diabetes. She is interested in obtaining a referral from her PCP for a middle school music teacher to learn about diabetic diet and would like staff assistance. Spoke to Lona at Dr Choe's office (patient's PCP) and let them know that patient is interested in a referral for a middle school music teacher. They are aware that [facility] takes patient's insurance and are located in [place] where patient lives.
--- NOTE | 2021-04-06 10:50 | PC.NURSE ---
Spoke to Lidia and reviewed my call to her PCP's office regarding obtaining a referral for a die operator to educate patient on a diabetic diet as patient was recently diagnosed with Type II diabetes. Patient stated she has a f/u appointment with her PCP on Friday04/10/21.
--- NOTE | 2021-04-11 14:19 | PC.NURSE ---
Patient stated she went to her PCP appointment on 04/10/21 to f/u on new dx of diabetes type II. Patient stated her BS was 106. Patient asked doctor to prescribe a glucometer so she can check her BS and patient was pleased that doctor will give her a prescription. Patient stated her doctor was happy that she lost 20 lbs and will send a referral for patient to see a it systems analyst consultant, stated she is to call the dieticians office to set up an appointment. In addition, patient reports Prazosin was increased from 2 mg to 3 mg d/t increased BP and nightmares. [facility] Special Education Case Manager aware. In addition, patient reports she signed up for a free online weekly group with Rachel to support her with her eating disorder.
--- NOTE | 2021-04-11 14:55 | HO.PHPPROGNO ---
Subjective Subjective Date of Service: 04/11/21 Reason For Visit: MDD, PTSD, Depression, Anxiety Subjective Notes: Yanes Warning Guardianship: No Medical Problems Affecting Mental Status: No Interim History: Lidia reports overall feeling well today. She states that her current medications are working well to help manage depression symptoms. On a scale 1-10, she rates her depression today as a 7. She states that this is an improvement, as when she started the program, it was a 10. she states that she does not need any refills of medications at this time, as she has enough until she sees her outpatient provider next week. She does report that she has contacted a support group for adults with eating disorders, and has a meeting with them scheduled for later on today. No safety concerns, denies any type of thoughts of harm to self or others at this time. Reports that groups are helping her learn how to cope more effectively. PLAN: No medication changes or refills needed at this time. Will follow up with patient in one week, sooner if needed. Medication Compliance: Yes Side effects from medications: No Attending Groups: Yes Review of Systems Review of Systems A full review of systems was completed and was negative with the exception of pertinent positives noted in history of presenting illness. Yes all other systems are reviewed and are negative Mental Status Exam Mental Status Exam Narrative: Well-developed, well-nourished female, in no apparent distress. Patient Appearance: Well Grooomed and Appropriate Patient Orientation: Person Level of Consciousness: Awake and Appropriate Patient Behavior: Appropriate and Cooperative Mood Description: Appropriate and Depressed ( Overall reports a decrease in depressive symptoms, however still is experiencing symptoms.) Affect Description: Appropriate, Depressed and Anxious Patient Cognition Impaired: No Ability to Follow Directions: Excellent Speech Pattern: Clear Memory Description: Intact Delusions: Not Present Thought Process: Intact Thought Content: positive for Intact Depressive Symptoms: Increased Anxiety, Difficulty Sleeping and Changes in Appetite Judgement: Fair Diagnostics Vital Signs (24Hr): Body Mass Index 43.5 Assessment & Plan Assessment & Plan (1) MDD (major depressive disorder), recurrent episode, moderate: Status: Acute Code(s): F33.1 - Major depressive disorder, recurrent, moderate Assessment and Plan: Patient reports continued depressive symptoms, however states that they have lessened since she began PHP. She states that she feels the current medication regimin working well. PLAN: No medication changes or refills needed at this time. Will follow up with patient in one week, sooner if needed. Certification I certify that partial hospital treatment is medically necessary due to the symptoms and problems resulting from the patient's mental illness and the failure to treat the patient at the partial hospital level of care would likely result in the patient requiring inpatient psychiatric care which could not be prevented at a less intensive level of care. Greater than 50% of the session was spent on counseling and/or coordination of care Discharge Plan Discharge Attending provider: Steve Ortiz Primary Care Provider: Akira Choe Medications: No Action trazodone 50 mg Tablet 50 mg PO BEDTIME PRN (Reason: Insomnia) 14 Days Qty: 14 RF: 1 acetaminophen [Tylenol Arthritis] 650 mg Tablet Extended Release 650 mg PO Q12H PRN (Reason: Pain) RF: 0 prazosin 1 mg capsule 3 mg PO BEDTIME RF: 0 venlafaxine 75 mg capsule,extended release 24hr 3 cap PO DAILY RF: 0 simvastatin 40 mg tablet 1 tab PO BEDTIME RF: 0 levothyroxine 88 mcg tablet 1 tab PO DAILY@0630 RF: 0 omeprazole 20 mg capsule,delayed release(DR/EC) 1 cap PO DAILY@0630 RF: 0 lamotrigine 150 mg tablet 1 tab PO BID 15 Days Qty: 30 RF: 0 clonazepam 0.5 mg tablet 1 tab PO BID 10 Days Qty: 20 RF: 0 Telehealth Telehealth Location of provider rendering services: practice address Location of patient: address on file Patient Identification confirmed using: Name, : Yes Telehealth method: video Patient verbally consented to treatment: Yes Patient verbally consented to billing insurance company: Yes Patient informed of any privacy concerns related to visit: Yes Time spent with patient (mins): 15
--- NOTE | 2021-04-17 13:54 | P.PNPSP_ITS ---
Subjective Subjective Date of Service: 04/17/21 Reason For Visit: MDD, PTSD, Depression, Anxiety Subjective Notes: Yanes Warning Guardianship: No Medical Problems Affecting Mental Status: No Interim History: Lidia reports that she does feel some improvement in her depressive symptoms since she has changed the Effexor to mornings instead of nighttime, especially with helping her be able to sleep at night. She does report ongoing depressive symptoms, stating I have up days and I have down days . She states that yesterday she felt depressed, but today she is feeling okay . She states that she has been working with her primary care regarding her diabetes and her diet. She does report having passive SI yesterday, but states that she has had no intent or plan to carry these thoughts out. She denies any thoughts of harm to self or others today, and states that she feels safe. She did report that she called the [place] crisis line over the weekend for added support, and found them to be helpful. She states she is content with current medication regimen, and does not request any changes. Medication Compliance: Yes Side effects from medications: No Attending Groups: Yes Review of Systems Acute medical concerns: No Medical Review of Systems: unchanged Review of Systems Review of Systems Yes all other systems are reviewed and are negative Mental Status Exam Mental Status Exam Narrative: Well-developed, well-nourished female, in no apparent distress. Sitting up and fully conversing with this consumer loan underwriter during encounter. Patient Appearance: Well Grooomed and Appropriate Patient Orientation: Person, Place, Time and Situation Level of Consciousness: Awake, Appropriate and Alert Patient Behavior: Appropriate, Cooperative and Good Eye Contact Mood Description: Appropriate, Depressed and Anxious Affect Description: Appropriate, Depressed and Anxious Patient Cognition Impaired: No Ability to Follow Directions: Excellent Speech Pattern: Clear, Appropriate and Coherent Memory Description: Intact Hallucinations: None Thought Process: Intact, Goal Oriented and Linear Thought Content: positive for Intact, positive for Goal Oriented, positive for Linear and positive for Suicidal Ideation (reports fluctuating passive SI, no intent or plan) Depressive Symptoms: Increased Anxiety, Difficulty Sleeping (reports ongoing sleep concerns, but feels they are improved. ), Changes in Appetite, Unhappiness, Thoughts of /Suicide (passive si, no intent/plan) and Low Self Esteem Judgement: Good Judgement and Insight: Overall judgment and insight appear grossly intact. Diagnostics Vital Signs (24Hr): Body Mass Index 43.5 Assessment & Plan Assessment & Plan (1) MDD (major depressive disorder), recurrent episode, moderate: Status: Acute Code(s): F33.1 - Major depressive disorder, recurrent, moderate Assessment and Plan: Patient feels that her mood ?goes up and down ?. She states that today she is feeling ?okay?. Reports having recent passive SI yesterday, but states that she had no intent or plans. She does report utilizing [employer] over the weekend when she felt increased depression, and that they were supp ortive. PLAN: Continue current medications, no changes at this time. Will follow-up with patient per protocol. Patient educated on: diagnosis, medication risk/benefits and therapeutic strategies Informed Consent: understands Reason for contiued partial hosp. stay Substantial Risk for: inability to function and med/psych decompensation Certification I certify that partial hospital treatment is medically necessary due to the symptoms and problems resulting from the patient's mental illness and the failure to treat the patient at the partial hospital level of care would likely result in the patient requiring inpatient psychiatric care which could not be prevented at a less intensive level of care. Greater than 50% of the session was spent on counseling and/or coordination of care Discharge Plan Discharge Attending provider: Steve Ortiz Primary Care Provider: Akira Choe Medications: No Action trazodone 50 mg Tablet 50 mg PO BEDTIME PRN (Reason: Insomnia) 14 Days Qty: 14 RF: 1 acetaminophen [Tylenol Arthritis] 650 mg Tablet Extended Release 650 mg PO Q12H PRN (Reason: Pain) RF: 0 prazosin 1 mg capsule 3 mg PO BEDTIME RF: 0 venlafaxine 75 mg capsule,extended release 24hr 3 cap PO DAILY RF: 0 simvastatin 40 mg tablet 1 tab PO BEDTIME RF: 0 levothyroxine 88 mcg tablet 1 tab PO DAILY@0630 RF: 0 omeprazole 20 mg capsule,delayed release(DR/EC) 1 cap PO DAILY@0630 RF: 0 lamotrigine 150 mg tablet 1 tab PO BID 15 Days Qty: 30 RF: 0 clonazepam 0.5 mg tablet 1 tab PO BID 10 Days Qty: 20 RF: 0 Referrals: Akira Choe MD [Primary Care Provider] - 1 Week Stand Alone Forms: Patient Portal Discharge page Telehealth Telehealth Location of provider rendering services: practice address Location of patient: address on file Patient Identification confirmed using: Name, : Yes Telehealth method: video Patient verbally consented to treatment: Yes Patient verbally consented to billing insurance company: Yes Patient informed of any privacy concerns related to visit: Yes Time spent with patient (mins): 15
--- NOTE | 2021-04-26 14:34 | PC.NURSE ---
I left a message with Renetta Gonzalez the clients therapist re Lidia discharging tomorrow and plans to euthanize her ill cat this afternoon.
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
--- NOTE | 2021-04-27 12:03 | PC.NURSE ---
Patient scheduled for discharge today. Reviewed patient medications with patient. Patient reports taking medications as prescribed and understands what she is taking. No Safety Concerns. Patient denied SI. Has the crisis numbers if needed. Patient discharge plans include seeing out patient providers, volunteering at a food bank, weekly DBT, [facility] eating disorder group, mindfulness group, and alternatives to suicide group. Patient feels ready and good about discharge.
== END 2021-04-30 07:43 | disposition home or self-care (01) ==
LOC: HO.PHPA 08:30
PROVIDERS: PCP Internal Medicine; Visit Provider Psychiatry & Neurology Psychiatry
DX: F33.1 Major depressive disorder, recurrent, moderate (principal); Z79.899 Other long term (current) drug therapy; Z91.5 Personal history of self-harm
CPT/HCPCS: 90791; 90853